=== PATIENT | male | born 1940 | race Caucasian/White ===

== ENCOUNTER 2017-01-20 21:35 | Emergency (ER) | payer MEDICARE, BC ==
--- NOTE | 2017-01-20 23:30 | ULT ---
LEFT UPPER EXTREMITY VENOUS DUPLEX SONOGRAM 01/20/17 HISTORY: Left arm pain and edema. FINDINGS: The left internal jugular vein and subclavian veins were evaluated along with the axillary, brachial, cephalic, and basilic veins. Good color and spectral doppler flow were present. IMPRESSION: No sonographic evidence of DVT within the left upper extremity. POS: DINESH
== END 2017-01-20 23:57 | disposition home or self-care (01) ==
LOC: ERS 21:35
DX: M79.89 Other specified soft tissue disorders (principal); G89.18 Other acute postprocedural pain

== ENCOUNTER 2017-02-16 16:29 | Inpatient (IN) | payer MEDICARE, BC ==
[2017-02-16] MEDS ORDERED: Ondansetron HCl/PF 4 MG/2 ML Vial IVP PRN (17:43)
[2017-02-16] MEDS ORDERED: HYDROcodone/Acetaminophen 5/325 mg Tablet PO PRN (17:43)
[2017-02-16] MEDS ORDERED: Guaifenesin DM 100-10/5 ML UDCUP PO PRN (17:43)
[2017-02-16] MEDS ORDERED: Ibuprofen 200 MG TAB PO PRN (17:49)
--- NOTE | 2017-02-16 20:00 | ULT ---
BILATERAL LOWER EXTREMITY VENOUS DOPPLER ULTRASOUND EVALUATION 02/16/17 HISTORY: Pulmonary embolus. Multiple longitudinal and transverse images of the right and left lower extremity venous systems are obtained using a multihertz linear array transducer. Real time, color flow, and spectral waveform dop pler analysis used to evaluate the right and left lower extremity venous systems. The left common femoral, superficial femoral, femoral profunda, popliteal, posterior tibial vein, pos t trifurcation veins, and left greater saphenous vein are all patent without evidence of acute or old clots seen. The right common femoral vein, superficial femoral vein, popliteal vein, and posterior tibial veins all contained noncompressible clot which fills the right lower extremity deep venous system. Some are as contain no flow. Minimal flow is seen through some areas. Findings compatible with acute right low er extremity deep venous thrombosis. Flow is seen in the right greater saphenous vein. IMPRESSION: Extensive right lower extremity deep venous thrombosis filling the right common femoral vein, superfi cial femoral vein, right popliteal vein, and distal. This is a large amount of clot. POS: JESICA
--- NOTE | 2017-02-16 21:27 | HP ---
DATE OF ADMISSION: 02/16/2017 ADMITTING PHYSICIAN: Dr. Roel Tran. PRIMARY CARE PHYSICIAN: Dr. Sara Ponce. CHIEF COMPLAINT: Right ear pain, dizziness, and left shoulder pain. HISTORY OF PRESENT ILLNESS: The patient is a 76-year-old gentleman who underwent a recent left shoul luca arthroplasty. The patient presented for evaluation in [place] for right ear pain, dizziness , shortness of breath. The patient and his report that for the last two weeks he has progressiv chasity become more short of breath and coughing up some light colored thick sputum 4-5 times a day. It has been worse over the last 24 hours. They also report that he has had some recent swelling and armida ma of the left arm. He was seen in the office of his PCP today secondary to hypoxia and dyspnea. He was sent to the emergency room for further evaluation. He denies chest pain, nausea, vomiting, diap horesis. REVIEW OF SYSTEMS: The following complete review of systems was negative, unless otherwise mentioned in the HPI or below: Constitutional: Weight loss or gain, sense of well-being, ability to conduct usual activities, exerc ise tolerance. Skin/Breast: Rash, itching, changes in hair growth or loss, nail changes, breast lumps, tenderness, swelling, nipple discharge. Eyes: Vision, double vision, tearing, blind spots, pain. ENT/Mouth: Headaches (location, time of onset, duration, precipitating factors), vertigo, lightheade dness, injury. Vision, double vision, tearing, blind spots, pain, nose bleeding, colds, obstruction, discharge, dental difficulties, gingival bleeding, dentures, neck stiffness, pain, tenderness, masses in thyroid or other areas. Cardiovascular: Precordial pain, substernal distress, palpitations, syncope, dyspnea on exertion, or thopnea, nocturnal paroxysmal dyspnea, edema, cyanosis, hypertension, heart murmurs, varicosities, ph lebitis, claudication. Respiratory: Pain, shortness of breath, wheezing, stridor, cough, hemoptysis, fever or night sweats. Gastrointestinal: Poor appetite, dysphagia, indigestion, abdominal pain, heartburn, eructation, naus ea, vomiting, hematemesis, jaundice, constipation, or diarrhea, abnormal stools (victoria-colored, tarry, bloody, greasy, foul smelling), flatulence, hemorrhoids, recent changes in bowel habits. Genitourinary: Urgency, frequency, dysuria, nocturia, hematuria, polyuria, oliguria, unusual (or kye nge in) color of urine, stones, hesitancy, change in size of stream, dribbling, acute retention or in continence, libido, potency. Musculoskeletal: Pain, swelling, redness or heat of muscles or joints, limitation, of motion, muscul ar weakness, atrophy, cramps. Neurologic/Psychiatric: Convulsions, paralyses, tremor, incoordination, paresthesias, difficulties w ith memory of speech, sensory or motor disturbances, or muscular coordination (ataxia, tremor), emoti onal problems, anxiety, depression, previous psychiatric care, unusual perceptions, hallucinations. Allergy/Immunologic: Skin rash, anemia, bleeding tendency, polydipsia, polyuria, intolerance to heat or cold. PAST MEDICAL HISTORY: Significant for degenerative joint disease, multiple hernias and iron deficien cy. PAST SURGICAL HISTORY: Positive for left shoulder replacement in 11/25/2016, left hip replacement in 04/2016 PSYCHIATRIC HISTORY: None. SOCIAL HISTORY: The patient denies alcohol, denies drugs, denies smoking. 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 HOME MEDICATIONS: Include Flomax 0.4 mg q. day, gabapentin 300 mg once a day, ibuprofen 200 mg q.6 h ours as needed. DRUG ALLERGIES: PENICILLINS, TETANUS VACCINES AND TOXOID. PHYSICAL EXAMINATION: VITAL SIGNS: Vital statistics, temperature 98.5, blood pressure 129/82, pulse 92, respirations 20, s atting 90% on 2 liters. GENERAL: He is in no acute distress, pleasant, cooperative, alert and oriented x4. HEAD: Normocephalic and atraumatic. EYES: PERRL. Extraocular muscles are intact. Sclerae are anicteric. NECK: Supple, full range of motion. Trachea is midline. CHEST: Breath sounds diminished in the right lower lobe, otherwise clear to auscultation. No wheezi ng, no rhonchi, no rales. CARDIOVASCULAR: Regular rate and rhythm, no murmurs, regurg or gallops. ABDOMEN: Nontender and nondistended. Positive bowel sounds throughout. EXTREMITIES: No clubbing, cyanosis or edema. NEUROLOGIC: No focal deficits. Full range of motion of all extremities. Cranial nerves II-XII are grossly intact. LABORATORY DATA AND IMAGES: EKG shows no ST segment abnormalities, frequent PVCs are present. No T- wave inversions. Chest x-ray shows a pleural effusion 10% to 50% on the right. No acute infiltrates , some right basal scarring and effusion versus atelectasis. Chest CT shows bilateral pulmonary embo li. CBC shows a white count of 8.6, hemoglobin 14.2, hematocrit 44.5, platelets 281,000. PT 15.3, I NR 1.2. D-dimer 10.18. CMP shows sodium of 134, potassium 4.3, chloride 97, CO2 of 25, BUN 12, crea tinine 0.83, glucose 386. Hemoglobin A1c of 5.9%. Lactic acid 1.9, calcium 9.2, AST 16, ALT 23, mag nesium 1.8, calcium 9.2. CK-MB of 1.4, creatine kinase of 63, troponin less than 0.01. BNP of less than 10. Albumin 3.8. LDL cholesterol of 96, HDL 60, total cholesterol 173, amylase 50, lipase 35. TSH of 2.07 with a free T4 of 0.8. Urinalysis yellow, clear, negative for ketones, negative for nit rites, negative for leukocytes. ASSESSMENT: 1. Bilateral pulmonary emboli. 2. Abdominal pain. 3. Hyperglycemia. PLAN: The patient will be admitted to the telemetry unit. We will use a Lovenox bridge as we attemp t to coumadinize him. We will start Coumadin at 5 mg at bedtime, check serial PT/INR until he is the rapeutic with an INR of greater than 2.0. Hyperglycemia, the patient has hemoglobin A1c of 5.9% with a markedly elevated serum glucose. We will repeat the labs in the morning and consider starting ora l hypoglycemics.
[2017-02-16] MEDS ORDERED: Enoxaparin Sodium 80 MG/0.8 ML SYRINGE SC SCH (21:30)
[2017-02-16] MEDS ORDERED: Warfarin Sodium 5 MG TAB PO SCH (21:30)
[2017-02-16] MEDS: Melatonin 3 MG TAB PO SCH (22:12)
[2017-02-16] MEDS: Acetaminophen 325 MG TAB PO PRN (22:14)
[2017-02-17 04:43] LABS: #Basophils 0.1 thou/uL (0.0-0.2); #Eosinphils 0.2 thou/uL (0.0-0.7); #Lymphocytes 2.2 thou/uL (1.20-3.40); #Monocytes 0.8 thou/uL (0.11-0.59); %Basophils 0.9 % (0.0-1.0); %Eosinophils 2.6 % (0.0-10.0); %Lymphocytes 30.2 % (21.0-51.0); %Monocytes 10.8 % (0.0-10.0); Hematocrit 43.3 % (42.0-52.0); Mean Platelet Volume 7.8 fL (7.4-10.4); Red Blood Cell (RBC) Count 4.88 mill/uL (4.70-6.10); White Blood Cell (WBC) Count 7.3 thou/uL (4.8-10.8)
[2017-02-17 06:16] LABS: Anion Gap 15 mmol/L (10-20); BUN (Urea Nitrogen) 12 mg/dL (8.4-25.7); Calc. Creatinine Clearance 80 mL/min (70-130); Calcium 9.9 mg/dL (7.8-10.44); Carbon Dioxide 23 mmol/L (23-31); Chloride 97 mmol/L (98-107); Estimated GFR-MDRD Greater than 90
[2017-02-17] MEDS ORDERED: Eucerin (Mineral Oil/Petrolatum,White) 30 gm Jar TOP PRN (07:55)
[2017-02-17] MEDS ORDERED: Loperamide HCl 2 MG CAP PO PRN (07:55)
[2017-02-17] MEDS ORDERED: Temazepam 15 MG CAP PO PRN (07:55)
[2017-02-17] MEDS ORDERED: Mag-Al 1200 mg/1200 mg/30 ML UDCUP PO PRN (07:55)
[2017-02-17] MEDS ORDERED: Loratadine 10 MG TAB PO PRN (07:55)
[2017-02-17] MEDS ORDERED: Sodium Chloride 0.65% Nasal 44 ML BOT EA NARE PRN (07:55)
[2017-02-17] MEDS ORDERED: Senokot 8.6 MG TAB PO PRN (07:55)
[2017-02-17] MEDS ORDERED: Ondansetron ODT 4 MG TAB PO PRN (07:55)
[2017-02-17] MEDS ORDERED: Artificial Tears 18 DROP/0.9 ML EA EYE PRN (07:55)
[2017-02-17] MEDS ORDERED: Diabetic Tussin 200 MG/10 ML UDCUP PO PRN (07:55)
[2017-02-17] MEDS ORDERED: hydrALAZINE 20 MG/ML VIAL SLOW IVP PRN (07:55)
[2017-02-17] MEDS ORDERED: Chloraseptic Spray 180 ml Bottle PO PRN (07:55)
[2017-02-17] MEDS ORDERED: Dextrose 50% Abboject 50 ML SYRINGE SLOW IVP PRN (07:57)
[2017-02-17] MEDS ORDERED: Dextrose 5% in Water 1,000 ML IV PRN (07:57)
[2017-02-17 08:39] LABS: Hemoglobin A1c 9.8 % (4.0-6.0)
[2017-02-17] MEDS: Milk Of Magnesia 30 ML UDCUP PO PRN (08:43)
[2017-02-17] MEDS: Ferrous Gluconate 324 MG TAB PO SCH ×2 (08:43→17:15)
[2017-02-17] MEDS: Enoxaparin Sodium 80 MG/0.8 ML SYRINGE SC SCH ×2 (08:43→21:02)
[2017-02-17] MEDS: Famotidine 20 MG TAB PO SCH ×2 (08:43→20:54)
[2017-02-17 08:50] LABS: Prothrombin Time 15.9 SEC (12.0-14.7)
[2017-02-17 08:58] LABS: ALT (SGPT) 22 U/L (8-55); AST (SGOT) 33 U/L (5-34); Alkaline Phosphatase 87 U/L (40-150); Bilirubin, Direct 0.1 mg/dL (0.1-0.3); Bilirubin, Total 0.4 mg/dL (0.2-1.2); Protein, Total 7.8 g/dL (5.8-8.1)
--- NOTE | 2017-02-17 10:13 | PDOC.PN ---
- Subjective Encounter Start Date: 02/17/17 Encounter Start Time: 07:50 -: old records requested/rev pt has dyspnea, no leg pain, no chest pain, has 4 lbs weight loss - Objective MAR Reviewed: Yes Vital Signs & Weight: Vital Signs (12 hours) Temp Pulse Resp BP Pulse Ox 02/17/17 07:30 97.4 F L 84 18 119/74 100 02/17/17 04:40 100 02/17/17 04:00 97.3 F L 56 L 20 135/82 100 02/17/17 00:50 99 02/17/17 00:00 97.4 F L 89 20 116/77 99 02/16/17 22:13 98 Weight Weight 165 lb I&O: 02/16/17 02/17/17 02/18/17 06:59 06:59 06:59 Intake Total 360 Output Total 625 Balance -265 Result Diagrams: 02/17/17 03:54 02/17/17 03:54 Radiology Reviewed by me: Yes (CTA, US leg) EKG Reviewed by me: Yes (NSR) Phys Exam - Physical Examination Constitutional: NAD HEENT: PERRLA, moist MMs, sclera anicteric Neck: no JVD, supple Respiratory: no wheezing, no rales, no rhonchi reduced air entry at base Cardiovascular: RRR, no significant murmur, no rub Gastrointestinal: soft, non-tender, no distention, positive bowel sounds Musculoskeletal: no edema, pulses present Neurological: non-focal, normal sensation, moves all 4 limbs Psychiatric: normal affect, A&O x 3 Skin: no rash, normal turgor Dx/Plan (1) New onset type 2 diabetes mellitus Code(s): E11.9 - TYPE 2 DIABETES MELLITUS WITHOUT COMPLICATIONS Status: Acute (2) Bilateral pulmonary embolism Code(s): I26.99 - OTHER PULMONARY EMBOLISM WITHOUT ACUTE COR PULMONALE Status : Acute (3) DVT of lower extremity (deep venous thrombosis) Code(s): I82.409 - ACUTE EMBOLISM AND THOMBOS UNSP DEEP VN UNSP LOWER EXTREMITY Status: Acute (4) Hyperglycemia Code(s): R73.9 - HYPERGLYCEMIA, UNSPECIFIED Status: Acute (5) Degenerative joint disease of left shoulder Code(s): M19.012 - PRIMARY OSTEOARTHRITIS, LEFT SHOULDER Status: Chronic (6) Osteoarthritis Code(s): M19.90 - UNSPECIFIED OSTEOARTHRITIS, UNSPECIFIED SITE Status: Chronic - Plan cont current plan of care * continue to monitor blood sugar * consult dietitian * add metformin 500 mg po bid * add glyburide 2.5 mg po daily * continue lovenox and warfarin until INR therapeutic * risk benefit of anticoagulation and different option discussed * medication reviewed as below * symptomatic treatment. * outpt ENT follow up for wax removal from right ear * will need age appropriate cancer screening after discharge * will monitor labs daily Review of Systems - Review of Systems Constitutional: negative: Fever, Chills, Sweats, Weakness, Malaise, Other Eyes: negative: Pain, Vision Change, Conjunctivae Inflammation, Eyelid Inflammation, Redness, Other ENT: negative: Ear Pain, Ear Discharge, Nose Pain, Nose Discharge, Nose Congestion, Mouth Pain, Mouth Swelling, Throat Pain, Throat Swelling, Other Respiratory: SOB with Excertion. negative: Cough, Dry, Shortness of Breath, Hemoptysis, Pleuritic Pain, Sputum, Wheezing Cardiovascular: negative: Chest Pain, Palpitations, Orthopnea, Paroxysmal Noc. Dyspnea, Edema, Light Headedness, Other Gastrointestinal: negative: Nausea, Vomiting, Abdominal Pain, Diarrhea, Constipation, Melena, Hematochezia, Other Genitourinary: negative: Dysuria, Frequency, Incontinence, Hematuria, Retention , Other Musculoskeletal: negative: Neck Pain, Shoulder Pain, Arm Pain, Back Pain, Hand Pain, Leg Pain, Foot Pain, Other Skin: negative: Rash, Lesions, Michael, Bruising, Other - Medications/Allergies Allergies/Adverse Reactions: Allergies Allergy/AdvReac Type Severity Reaction Status Date / Time Penicillins Allergy Verified 02/16/17 22:17 Tetanus Vaccines and Toxoid Allergy Verified 02/16/17 22:17 [Tetanus Vaccines & Toxoid] Medications: Current Medications Acetaminophen (Tylenol) 650 mg PO Q4H PRN PRN Reason: Headache/Fever or Pain Last Admin: 02/16/17 22:14 Dose: 650 mg Hydrocodone Bitart/Acetaminophen ([place] 5/325) 1 tab PO Q4H PRN PRN Reason: Moderate Pain (4-6) Al Hydroxide/Mg Hydroxide (Maalox) 15 ml PO Q4H PRN PRN Reason: Heartburn or Indigestion Artificial Tears (Tears Naturale) 0 drop EA EYE PRN PRN PRN Reason: Dry Eyes Dextrose/Water (Dextrose 50%) 25 gm SLOW IVP PRN PRN PRN Reason: Hypoglycemia Enoxaparin Sodium (Lovenox) 75 mg SC 0900,2100 [facility] Last Admin: 02/17/17 08:43 Dose: 75 mg Famotidine (Pepcid) 20 mg PO BID [facility] Last Admin: 02/17/17 08:43 Dose: 20 mg Ferrous Gluconate (Fergon) 324 mg PO BID-[facility] Last Admin: 02/17/17 08:43 Dose: 324 mg Glucagon (Glucagon) 1 mg IM PRN PRN PRN Reason: Hypoglycemia Glyburide (Micronase) 2.5 mg PO QAM-[facility] Guaifenesin (Robitussin Sf) 200 mg PO Q4H PRN PRN Reason: Cough Guaifenesin/Dextromethorphan (Robitussin Dm) 15 ml PO Q4H PRN PRN Reason: Cough Hydralazine HCl (Apresoline) 10 mg SLOW IVP Q4H PRN PRN Reason: Systolic BP > 180 Dextrose/Water (D5w) 1,000 mls @ 0 mls/hr IV .Q0M PRN; As Directed PRN Reason: Hypoglycemia Insulin Human Lispro (Humalog) 0 units SC .MODERATE SLIDING SC PRN PRN Reason: Moderate Correctional Scale Insulin Human Lispro (Humalog) 0 units SC .BEDTIME SLIDING SC PRN PRN Reason: Bedtime Correctional Scale Loperamide HCl (Imodium) 2 mg PO PRN PRN PRN Reason: Diarrhea/Loose Stools Loratadine (Claritin) 10 mg PO DAILYPRN PRN PRN Reason: Sinus Symptoms Magnesium Hydroxide (Milk Of Magnesium) 30 ml PO DAILYPRN PRN PRN Reason: Constipation Last Admin: 02/17/17 08:43 Dose: 30 ml Melatonin (Melatonin) [address] [facility] Last Admin: 02/16/17 22:12 Dose: 6 mg Metformin HCl (Glucophage) 500 mg PO BID-[facility] Mineral Oil/White Petrolatum (Eucerin Cream) 0 gm TOP BIDPRN PRN PRN Reason: Dry Skin Ondansetron HCl (Zofran) 4 mg IVP Q6H PRN PRN Reason: Nausea/Vomiting Ondansetron HCl (Zofran Odt) 4 mg PO Q6H PRN PRN Reason: Nausea/Vomiting Phenol (Chloraseptic [place] 180 Ml Bot) 0 ml PO PRN PRN PRN Reason: Sore Throat Senna (Senokot) 2 tab PO HSPRN PRN PRN Reason: Constipation Sodium Chloride (Flush - Normal Saline) 10 ml IVF Q12HR [facility] Last Admin: 02/17/17 08:44 Dose: 10 ml Sodium Chloride (Flush - Normal Saline) 10 ml IVF PRN PRN PRN Reason: Saline Flush Sodium Chloride ([place] Nasal [place] 0.65%) 0 ml EA NARE QIDPRN PRN PRN Reason: Nasal Congestion Temazepam (Restoril) 15 mg PO HSPRN PRN PRN Reason: Insomnia Warfarin Sodium (Coumadin) 5 mg PO 1700 [facility]
[2017-02-17 10:29] LABS: Bilirubin Negative (Negative); Blood, Urine Negative (Negative); Glucose, Urine (Dipstick) 500 mg/dL (Negative); Ketone, Urine Negative (Negative); Nitrite Negative (Negative); Protein, Urine (Dipstick) 30 mg/dL (Neg-Trace); Urobilinogen 0.2 mg/dL (0.2-1.0)
[2017-02-17 10:32] LABS: Bacteria/HPF None Seen HPF (None Seen); Hyaline Casts/LPF 0-3 HYALINE CAST LPF (0-3 Hyaline); RBC/HPF 0-3 HPF (0-3); Squamous Epithelial 0-3 HPF (0-3); WBC/HPF 0-3 HPF (0-3)
[2017-02-17] MEDS: HumaLOG 300 UNITS/3 ML VIAL SC PRN ×3 (12:35→21:09)
[2017-02-17] MEDS: Warfarin Sodium 5 MG TAB PO SCH (17:16)
[2017-02-17] MEDS: metFORMIN 500 MG TAB PO SCH (17:17)
[2017-02-17] MEDS: Melatonin 3 MG TAB PO SCH (20:59)
[2017-02-18 04:58] LABS: Prothrombin Time 16.3 SEC (12.0-14.7)
[2017-02-18 05:04] LABS: Calc. Creatinine Clearance 86 mL/min (70-130); Estimated GFR-MDRD Greater than 90
[2017-02-18] MEDS ORDERED: glyBURIDE 2.5 MG TAB PO SCH ×2 (08:00)
[2017-02-18] MEDS: metFORMIN 500 MG TAB PO SCH ×2 (09:03→16:20)
[2017-02-18] MEDS: Enoxaparin Sodium 80 MG/0.8 ML SYRINGE SC SCH ×2 (09:03→21:06)
--- NOTE | 2017-02-18 10:06 | PDOC.PN ---
- Subjective Encounter Start Date: 02/18/17 Encounter Start Time: 07:50 Patient seen and examined. No new complaints. No overnight events, pt denies any kristopher GI bleed, he reports some constipation and bloating after food no chest pain or dyspnea - Objective MAR Reviewed: Yes Vital Signs & Weight: Vital Signs (12 hours) Temp Pulse Resp BP Pulse Ox 02/18/17 07:29 98.5 F 83 18 95 02/18/17 06:50 98.5 F 83 18 125/77 95 02/18/17 04:56 99.1 F 86 25 H 90 L Weight Admit Weight 166 lb 11.2 oz Weight 165 lb I&O: 02/17/17 02/18/17 02/19/17 06:59 06:59 06:59 Intake Total 360 1440 Output Total 625 400 Balance -265 1040 Result Diagrams: 02/18/17 04:08 02/18/17 04:08 Additional Labs: Accuchecks 02/18/17 02/17/17 02/17/17 05:55 20:15 17:12 POC Glucose 213 H 252 H 229 H 02/17/17 11:38 POC Glucose 360 H EKG Reviewed by me: Yes (NSR) Phys Exam - Physical Examination Constitutional: NAD HEENT: PERRLA, moist MMs, sclera anicteric Neck: no JVD, supple Respiratory: no wheezing, no rales, no rhonchi Cardiovascular: RRR, no significant murmur, no rub Gastrointestinal: soft, non-tender, no distention, positive bowel sounds Musculoskeletal: no edema, pulses present Neurological: non-focal, normal sensation, moves all 4 limbs Lymphatic: no nodes Psychiatric: normal affect, A&O x 3 Skin: no rash, normal turgor Dx/Plan (1) Bilateral pulmonary embolism Code(s): I26.99 - OTHER PULMONARY EMBOLISM WITHOUT ACUTE COR PULMONALE Status : Acute (2) New onset type 2 diabetes mellitus Code(s): E11.9 - TYPE 2 DIABETES MELLITUS WITHOUT COMPLICATIONS Status: Acute (3) DVT of lower extremity (deep venous thrombosis) Code(s): I82.409 - ACUTE EMBOLISM AND THOMBOS UNSP DEEP VN UNSP LOWER EXTREMITY Status: Acute (4) Hyperglycemia Code(s): R73.9 - HYPERGLYCEMIA, UNSPECIFIED Status: Acute (5) Degenerative joint disease of left shoulder Code(s): M19.012 - PRIMARY OSTEOARTHRITIS, LEFT SHOULDER Status: Chronic (6) Osteoarthritis Code(s): M19.90 - UNSPECIFIED OSTEOARTHRITIS, UNSPECIFIED SITE Status: Chronic - Plan cont current plan of care * increase glyburide 5 mg po daily * hold metformin for 48 hours * today CT abdomen and pelvis with contrast * continue lovenox and warfarin until INR therapeutic * medication reviewed as below * symptomatic treatment. * will monitor labs Review of Systems - Review of Systems ENT: negative: Ear Pain, Ear Discharge, Nose Pain, Nose Discharge, Nose Congestion, Mouth Pain, Mouth Swelling, Throat Pain, Throat Swelling, Other Respiratory: negative: Cough, Dry, Shortness of Breath, Hemoptysis, SOB with Excertion, Pleuritic Pain, Sputum, Wheezing Cardiovascular: negative: Chest Pain, Palpitations, Orthopnea, Paroxysmal Noc. Dyspnea, Edema, Light Headedness, Other Gastrointestinal: Constipation. negative: Nausea, Vomiting, Abdominal Pain, Diarrhea, Melena, Hematochezia, Other Genitourinary: negative: Dysuria, Frequency, Incontinence, Hematuria, Retention , Other Musculoskeletal: negative: Neck Pain, Shoulder Pain, Arm Pain, Back Pain, Hand Pain, Leg Pain, Foot Pain, Other Skin: negative: Rash, Lesions, Michael, Bruising, Other - Medications/Allergies Allergies/Adverse Reactions: Allergies Allergy/AdvReac Type Severity Reaction Status Date / Time Penicillins Allergy Verified 02/16/17 22:17 Tetanus Vaccines and Toxoid Allergy Verified 02/16/17 22:17 [Tetanus Vaccines & Toxoid] Medications: Current Medications Acetaminophen (Tylenol) 650 mg PO Q4H PRN PRN Reason: Headache/Fever or Pain Last Admin: 02/16/17 22:14 Dose: 650 mg Hydrocodone Bitart/Acetaminophen ([place] 5/325) 1 tab PO Q4H PRN PRN Reason: Moderate Pain (4-6) Al Hydroxide/Mg Hydroxide (Maalox) 15 ml PO Q4H PRN PRN Reason: Heartburn or Indigestion Artificial Tears (Tears Naturale) 0 drop EA EYE PRN PRN PRN Reason: Dry Eyes Dextrose/Water (Dextrose 50%) 25 gm SLOW IVP PRN PRN PRN Reason: Hypoglycemia Enoxaparin Sodium (Lovenox) 75 mg SC 0900,2100 [facility] Last Admin: 02/18/17 09:03 Dose: 75 mg Famotidine (Pepcid) 20 mg PO BID [facility] Last Admin: 02/17/17 20:54 Dose: 20 mg Ferrous Gluconate (Fergon) 324 mg PO BID-[facility] Last Admin: 02/17/17 17:15 Dose: 324 mg Glucagon (Glucagon) 1 mg IM PRN PRN PRN Reason: Hypoglycemia Glyburide ([place]) 5 mg PO QAM-[facility] Guaifenesin (Robitussin Sf) 200 mg PO Q4H PRN PRN Reason: Cough Guaifenesin/Dextromethorphan (Robitussin Dm) 15 ml PO Q4H PRN PRN Reason: Cough Hydralazine HCl (Apresoline) 10 mg SLOW IVP Q4H PRN PRN Reason: Systolic BP > 180 Dextrose/Water (D5w) 1,000 mls @ 0 mls/hr IV .Q0M PRN; As Directed PRN Reason: Hypoglycemia Insulin Human Lispro (Humalog) 0 units SC .MODERATE SLIDING SC PRN PRN Reason: Moderate Correctional Scale Last Admin: 02/17/17 17:32 Dose: 4 unit Insulin Human Lispro (Humalog) 0 units SC .BEDTIME SLIDING SC PRN PRN Reason: Bedtime Correctional Scale Last Admin: 02/17/17 21:09 Dose: 3 unit Loperamide HCl (Imodium) 2 mg PO PRN PRN PRN Reason: Diarrhea/Loose Stools Loratadine (Claritin) 10 mg PO DAILYPRN PRN PRN Reason: Sinus Symptoms Magnesium Hydroxide (Milk Of Magnesium) 30 ml PO DAILYPRN PRN PRN Reason: Constipation Last Admin: 02/17/17 08:43 Dose: 30 ml Melatonin (Melatonin) 6 mg PO [facility] Last Admin: 02/17/17 20:59 Dose: 6 mg Metformin HCl (Glucophage) 500 mg PO BID-[facility] Last Admin: 02/18/17 09:03 Dose: Not Given Mineral Oil/White Petrolatum (Eucerin Cream) 0 gm TOP BIDPRN PRN PRN Reason: Dry Skin Ondansetron HCl (Zofran) 4 mg IVP Q6H PRN PRN Reason: Nausea/Vomiting Ondansetron HCl (Zofran Odt) 4 mg PO Q6H PRN PRN Reason: Nausea/Vomiting Phenol (Chloraseptic [place] 180 Ml Bot) 0 ml PO PRN PRN PRN Reason: Sore Throat Senna (Senokot) 2 tab PO HSPRN PRN PRN Reason: Constipation Sodium Chloride (Flush - Normal Saline) 10 ml IVF Q12HR [facility] Last Admin: 02/18/17 09:07 Dose: 10 ml Sodium Chloride (Flush - Normal Saline) 10 ml IVF PRN PRN PRN Reason: Saline Flush Sodium Chloride ([place] Nasal [place] 0.65%) 0 ml EA NARE QIDPRN PRN PRN Reason: Nasal Congestion Tamsulosin HCl (Flomax) 0.4 mg PO DAILY [facility] Temazepam (Restoril) 15 mg PO HSPRN PRN PRN Reason: Insomnia Warfarin Sodium (Coumadin) 5 mg PO 1700 [facility] Last Admin: 02/17/17 17:16 Dose: 5 mg
[2017-02-18] MEDS: glyBURIDE 5 MG TAB PO SCH (10:42)
[2017-02-18] MEDS: Ferrous Gluconate 324 MG TAB PO SCH ×2 (10:42→17:34)
[2017-02-18] MEDS: Milk Of Magnesia 30 ML UDCUP PO PRN (10:42)
[2017-02-18] MEDS: Famotidine 20 MG TAB PO SCH ×2 (10:43→21:05)
[2017-02-18] MEDS: Tamsulosin HCl 0.4 MG CAP PO SCH (10:43)
--- NOTE | 2017-02-18 11:17 | CT ---
CT SCAN ABDOMEN AND PELVIS WITH AND WITHOUT CONTRAST: Date: 02/18/17 Multiple axial tomograms are obtained through the abdomen and pelvis pre and post IV contrast. Postco ntrast images were obtained in a portal venous and a delayed venous phase following urogram protocol. HISTORY: Hematuria protocol is requested. Urinary incontinence. FINDINGS: Imaged through the lung bases reveal a small right pleural effusion and mild right basilar atelectasi s. The liver shows diffuse hypodensity consistent with hepatic steatosis. Liver, spleen, and pancreas otherwise unremarkable. Adrenal glands appear normal. Kidneys show equal function. There is a 1.0 cm cyst inferior left kidney. There is a small exophytic low density lesion measuring approximately 1.0 cm posterolateral right renal cortex, probably represe nting a small exophytic cyst. The precontrast densities are higher than expected for a simple cyst ma dennise this a complex lesion. Small bowel loops appear normal. Diverticulosis of the sigmoid colon and left colon. No evidence of d iverticulitis. Images through the pelvis are degraded due to spray artifact from left hip prosthesis. The bladder is poorly distended and not well evaluated. Prostate shows mild enlargement with prostatic measurements recorded at 3.7 cm AP dimension x 5.1 cm width. Aorta is normal caliber. Nonspecific retroperitoneal lymph nodes are subcentimeter. No adenopathy. IMPRESSION: 1. Tiny right pleural effusion and mild right basilar atelectasis. 2. Hepatic steatosis. 3. An indeterminate exophytic low density lesion from the posterolateral right renal cortex measurin g 1.0 cm. This probably represents a complex cyst, but precontrast densities are recorded at 27 Houns field units. Follow-up noncontrast CT abdomen in 6 months is recommended to confirm stability. 4. Small, 1.0 cm, cystic lesion in the inferior left renal cortex. This lesion does have cystic dens ities on precontrast. 5. Sigmoid diverticulosis. 6. Bladder is not well distended and not adequately evaluated. Prostate shows mild hypertrophy witho ut significant mass effect on the bladder flow. POS: [facility]
[2017-02-18] MEDS: HumaLOG 300 UNITS/3 ML VIAL SC PRN ×3 (11:43→22:07)
[2017-02-18] MEDS ORDERED: Morphine 4 MG/ML VIAL SLOW IVP PRN (15:59)
[2017-02-18] MEDS ORDERED: HYDROcodone/Acetaminophen 10/325 mg Tablet PO PRN (15:59)
[2017-02-18] MEDS: Acetaminophen 325 MG TAB PO PRN (17:33)
[2017-02-18] MEDS: Warfarin Sodium 5 MG TAB PO SCH (17:33)
[2017-02-18] MEDS: Melatonin 3 MG TAB PO SCH (21:06)
[2017-02-19 06:33] LABS: Prothrombin Time 17.4 SEC (12.0-14.7)
[2017-02-19] MEDS: HumaLOG 300 UNITS/3 ML VIAL SC PRN ×4 (08:22→20:51)
[2017-02-19] MEDS: Enoxaparin Sodium 80 MG/0.8 ML SYRINGE SC SCH ×2 (08:24→20:47)
[2017-02-19] MEDS: glyBURIDE 5 MG TAB PO SCH (08:25)
[2017-02-19] MEDS: Famotidine 20 MG TAB PO SCH ×2 (08:25→20:46)
[2017-02-19] MEDS: Tamsulosin HCl 0.4 MG CAP PO SCH (08:26)
[2017-02-19] MEDS: Ferrous Gluconate 324 MG TAB PO SCH ×2 (08:26→18:05)
[2017-02-19] MEDS: metFORMIN 500 MG TAB PO SCH ×2 (08:26→18:02)
--- NOTE | 2017-02-19 10:58 | PDOC.PN ---
- Subjective Encounter Start Date: 02/19/17 Encounter Start Time: 07:50 pt c/o left hand and wrist pain, has chronic shoulder pain, no chest pain or dyspnea - Objective MAR Reviewed: Yes Vital Signs & Weight: Vital Signs (12 hours) Temp Pulse Resp BP BP Pulse Ox 02/19/17 07:27 97.9 F 76 16 88 L 02/19/17 07:15 76 16 137/69 02/19/17 03:17 97.7 F 87 12 133/74 90 L Weight Admit Weight 166 lb 11.2 oz Weight 165 lb 11.2 oz I&O: 02/18/17 02/19/17 02/20/17 06:59 06:59 06:59 Intake Total 1440 360 Output Total 400 725 Balance 1040 -365 Result Diagrams: 02/18/17 04:08 02/18/17 04:08 Additional Labs: Accuchecks 02/19/17 02/18/17 02/18/17 03:32 21:15 17:34 POC Glucose 217 H 253 H 231 H 02/18/17 11:08 POC Glucose 226 H Radiology Reviewed by me: Yes (CT abdomen) EKG Reviewed by me: Yes (nsr) Phys Exam - Physical Examination Constitutional: NAD HEENT: PERRLA, moist MMs, sclera anicteric Neck: no JVD, supple Respiratory: no wheezing, no rales, no rhonchi Cardiovascular: RRR, no significant murmur, no rub Gastrointestinal: soft, non-tender, no distention, positive bowel sounds Musculoskeletal: no edema, pulses present Neurological: non-focal, normal sensation, moves all 4 limbs Lymphatic: no nodes Psychiatric: normal affect, A&O x 3 Skin: no rash, normal turgor Dx/Plan (1) Bilateral pulmonary embolism Code(s): I26.99 - OTHER PULMONARY EMBOLISM WITHOUT ACUTE COR PULMONALE Status : Acute (2) New onset type 2 diabetes mellitus Code(s): E11.9 - TYPE 2 DIABETES MELLITUS WITHOUT COMPLICATIONS Status: Acute (3) DVT of lower extremity (deep venous thrombosis) Code(s): I82.409 - ACUTE EMBOLISM AND THOMBOS UNSP DEEP VN UNSP LOWER EXTREMITY Status: Acute (4) Hyperglycemia Code(s): R73.9 - HYPERGLYCEMIA, UNSPECIFIED Status: Acute (5) Degenerative joint disease of left shoulder Code(s): M19.012 - PRIMARY OSTEOARTHRITIS, LEFT SHOULDER Status: Chronic (6) Osteoarthritis Code(s): M19.90 - UNSPECIFIED OSTEOARTHRITIS, UNSPECIFIED SITE Status: Chronic - Plan cont current plan of care * will do xray left hand and wrist per pt request * seems like he has chronic pain since his left shoulder surgery * continue lovenox and warfarin until INR is therapeutic * medication reviewed as below * symptomatic treatment * pain control. Review of Systems - Review of Systems Constitutional: negative: Fever, Chills, Sweats, Weakness, Malaise, Other ENT: negative: Ear Pain, Ear Discharge, Nose Pain, Nose Discharge, Nose Congestion, Mouth Pain, Mouth Swelling, Throat Pain, Throat Swelling, Other Respiratory: negative: Cough, Dry, Shortness of Breath, Hemoptysis, SOB with Excertion, Pleuritic Pain, Sputum, Wheezing Cardiovascular: negative: Chest Pain, Palpitations, Orthopnea, Paroxysmal Noc. Dyspnea, Edema, Light Headedness, Other Gastrointestinal: negative: Nausea, Vomiting, Abdominal Pain, Diarrhea, Constipation, Melena, Hematochezia, Other Genitourinary: negative: Dysuria, Frequency, Incontinence, Hematuria, Retention , Other Musculoskeletal: Shoulder Pain, Hand Pain. negative: Neck Pain, Arm Pain, Back Pain, Leg Pain, Foot Pain, Other Skin: negative: Rash, Lesions, Michael, Bruising, Other - Medications/Allergies Allergies/Adverse Reactions: Allergies Allergy/AdvReac Type Severity Reaction Status Date / Time Penicillins Allergy Verified 02/16/17 22:17 Tetanus Vaccines and Toxoid Allergy Verified 02/16/17 22:17 [Tetanus Vaccines & Toxoid] Medications: Current Medications Acetaminophen (Tylenol) 650 mg PO Q4H PRN PRN Reason: Headache/Fever or Pain Last Admin: 02/18/17 17:33 Dose: 650 mg Hydrocodone Bitart/Acetaminophen ([place] 5/325) 1 tab PO Q4H PRN PRN Reason: Moderate Pain (4-6) Hydrocodone Bitart/Acetaminophen ([place] 10/325) 1 tab PO Q4H PRN PRN Reason: Pain 7-10 Al Hydroxide/Mg Hydroxide (Maalox) 15 ml PO Q4H PRN PRN Reason: Heartburn or Indigestion Artificial Tears (Tears Naturale) 0 drop EA EYE PRN PRN PRN Reason: Dry Eyes Dextrose/Water (Dextrose 50%) 25 gm SLOW IVP PRN PRN PRN Reason: Hypoglycemia Enoxaparin Sodium (Lovenox) 75 mg SC 0900,2100 [facility] Last Admin: 02/19/17 08:24 Dose: 75 mg Famotidine (Pepcid) 20 mg PO BID [facility] Last Admin: 02/19/17 08:25 Dose: 20 mg Ferrous Gluconate (Fergon) 324 mg PO BID-[facility] Last Admin: 02/19/17 08:26 Dose: 324 mg Glucagon (Glucagon) 1 mg IM PRN PRN PRN Reason: Hypoglycemia Glyburide (Diabeta) 5 mg PO QAM-[facility] Last Admin: 02/19/17 08:25 Dose: 5 mg Guaifenesin (Robitussin Sf) 200 mg PO Q4H PRN PRN Reason: Cough Guaifenesin/Dextromethorphan (Robitussin Dm) 15 ml PO Q4H PRN PRN Reason: Cough Hydralazine HCl (Apresoline) 10 mg SLOW IVP Q4H PRN PRN Reason: Systolic BP > 180 Dextrose/Water (D5w) 1,000 mls @ 0 mls/hr IV .Q0M PRN; As Directed PRN Reason: Hypoglycemia Insulin Human Lispro (Humalog) 0 units SC .MODERATE SLIDING SC PRN PRN Reason: Moderate Correctional Scale Last Admin: 02/19/17 08:22 Dose: 4 unit Insulin Human Lispro (Humalog) 0 units SC .BEDTIME SLIDING SC PRN PRN Reason: Bedtime Correctional Scale Last Admin: 02/18/17 22:07 Dose: 3 unit Loperamide HCl (Imodium) 2 mg PO PRN PRN PRN Reason: Diarrhea/Loose Stools Loratadine (Claritin) 10 mg PO DAILYPRN PRN PRN Reason: Sinus Symptoms Magnesium Hydroxide (Milk Of Magnesium) 30 ml PO DAILYPRN PRN PRN Reason: Constipation Last Admin: 02/18/17 10:42 Dose: 30 ml Melatonin (Melatonin) 6 mg PO [facility] Last Admin: 02/18/17 21:06 Dose: 6 mg Metformin HCl (Glucophage) 500 mg PO BID-[facility] Last Admin: 02/19/17 08:26 Dose: Not Given Mineral Oil/White Petrolatum (Eucerin Cream) 0 gm TOP BIDPRN PRN PRN Reason: Dry Skin Morphine Sulfate (Morphine) 2 mg SLOW IVP Q4H PRN PRN Reason: Pain IF UNABLE TO TAKE PO Ondansetron HCl (Zofran) 4 mg IVP Q6H PRN PRN Reason: Nausea/Vomiting Ondansetron HCl (Zofran Odt) 4 mg PO Q6H PRN PRN Reason: Nausea/Vomiting Phenol (Chloraseptic [place] 180 Ml Bot) 0 ml PO PRN PRN PRN Reason: Sore Throat Senna (Senokot) 2 tab PO HSPRN PRN PRN Reason: Constipation Sodium Chloride (Flush - Normal Saline) 10 ml IVF Q12HR [facility] Last Admin: 02/19/17 08:23 Dose: 10 ml Sodium Chloride (Flush - Normal Saline) 10 ml IVF PRN PRN PRN Reason: Saline Flush Sodium Chloride ([place] Nasal [place] 0.65%) 0 ml EA NARE QIDPRN PRN PRN Reason: Nasal Congestion Tamsulosin HCl (Flomax) 0.4 mg PO DAILY [facility] Last Admin: 02/19/17 08:26 Dose: 0.4 mg Temazepam (Restoril) 15 mg PO HSPRN PRN PRN Reason: Insomnia Warfarin Sodium (Coumadin) 5 mg PO 1700 [facility] Last Admin: 02/18/17 17:33 Dose: 5 mg
--- NOTE | 2017-02-19 13:46 | RAD ---
LEFT WRIST 3 VIEWS: HISTORY: Left wrist pain. FINDINGS: Moderate degenerative changes of the 1st carpometacarpal joint. There is joint space narrowing and h ypertrophic changes at this joint. Carpals appear intact. No acute fracture identified. IMPRESSION: No acute fracture. Moderate degenerative changes at the 1st carpometacarpal. POS: [facility]
--- NOTE | 2017-02-19 13:49 | RAD ---
LEFT HAND 3 VIEWS: HISTORY: Hand pain. FINDINGS: Moderate to severe degenerative changes of the 1st carpometacarpal. There is collapse of the trapezi um. No acute carpal fracture identified. Metacarpals and phalanges appear intact. Narrowing of the MCP joints, particularly prominent involving the 2nd and 3rd MCP joints. Degenerative changes of th e IP joints of all fingers. Cystic change is seen in the phalanges. IMPRESSION: There are moderate degenerative changes throughout the left hand as described. No acute fracture. POS: [facility]
[2017-02-19] MEDS: Warfarin Sodium 5 MG TAB PO SCH (18:05)
[2017-02-19] MEDS: Melatonin 3 MG TAB PO SCH (20:56)
[2017-02-20] MEDS: HumaLOG 300 UNITS/3 ML VIAL SC PRN (05:54)
[2017-02-20 06:01] LABS: Hematocrit 41.1 % (42.0-52.0)
[2017-02-20 06:08] LABS: Prothrombin Time 17.3 SEC (12.0-14.7)
[2017-02-20 06:12] LABS: Calc. Creatinine Clearance 92 mL/min (70-130); Estimated GFR-MDRD Greater than 90
[2017-02-20] MEDS: Enoxaparin Sodium 80 MG/0.8 ML SYRINGE SC SCH ×2 (08:20→21:08)
[2017-02-20] MEDS: Famotidine 20 MG TAB PO SCH ×2 (08:21→21:10)
[2017-02-20] MEDS: glyBURIDE 5 MG TAB PO SCH (08:21)
[2017-02-20] MEDS: Acetaminophen 325 MG TAB PO PRN (08:21)
[2017-02-20] MEDS: Tamsulosin HCl 0.4 MG CAP PO SCH (08:21)
[2017-02-20] MEDS: metFORMIN 500 MG TAB PO SCH ×2 (08:22→17:26)
[2017-02-20] MEDS: Ferrous Gluconate 324 MG TAB PO SCH ×2 (08:22→17:26)
--- NOTE | 2017-02-20 10:24 | PDOC.PN ---
- Subjective Encounter Start Date: 02/20/17 Encounter Start Time: 07:55 Patient seen and examined. No new complaints. No overnight events - Objective MAR Reviewed: Yes Vital Signs & Weight: Vital Signs (12 hours) Temp Pulse Resp BP Pulse Ox 02/20/17 07:12 97.2 F L 84 18 130/78 88 L 02/20/17 04:00 98.7 F 81 20 146/66 H 90 L 02/20/17 00:00 98.6 F 75 18 124/77 94 L Weight Admit Weight 166 lb 11.2 oz Weight 170 lb I&O: 02/19/17 02/20/17 02/21/17 06:59 06:59 06:59 Intake Total 360 1810 Output Total 725 500 Balance -365 1310 Result Diagrams: 02/20/17 05:07 02/20/17 05:07 Additional Labs: Accuchecks 02/20/17 02/19/17 02/19/17 05:44 20:01 17:10 POC Glucose 206 H 240 H 184 H 02/19/17 11:37 POC Glucose 188 H Radiology Reviewed by me: Yes (xray hand) EKG Reviewed by me: Yes (nsr) Phys Exam - Physical Examination Constitutional: NAD HEENT: PERRLA, moist MMs, sclera anicteric Neck: no JVD, supple Respiratory: no wheezing, no rales, no rhonchi Cardiovascular: RRR, no significant murmur, no rub Gastrointestinal: soft, non-tender, no distention, positive bowel sounds Musculoskeletal: no edema, pulses present Neurological: non-focal, normal sensation, moves all 4 limbs Psychiatric: normal affect, A&O x 3 Skin: no rash, normal turgor Dx/Plan (1) Bilateral pulmonary embolism Code(s): I26.99 - OTHER PULMONARY EMBOLISM WITHOUT ACUTE COR PULMONALE Status : Acute (2) New onset type 2 diabetes mellitus Code(s): E11.9 - TYPE 2 DIABETES MELLITUS WITHOUT COMPLICATIONS Status: Acute (3) DVT of lower extremity (deep venous thrombosis) Code(s): I82.409 - ACUTE EMBOLISM AND THOMBOS UNSP DEEP VN UNSP LOWER EXTREMITY Status: Acute (4) Hyperglycemia Code(s): R73.9 - HYPERGLYCEMIA, UNSPECIFIED Status: Acute (5) Degenerative joint disease of left shoulder Code(s): M19.012 - PRIMARY OSTEOARTHRITIS, LEFT SHOULDER Status: Chronic (6) Osteoarthritis Code(s): M19.90 - UNSPECIFIED OSTEOARTHRITIS, UNSPECIFIED SITE Status: Chronic - Plan cont current plan of care * wean off oxygen as tolerated * increase warfarin 7.5 mg po daily * continue lovenox * dc tele * transfer to medical * repeat labs tomorrow * medication reviewed as below * symptomatic treatment. Review of Systems - Review of Systems ENT: negative: Ear Pain, Ear Discharge, Nose Pain, Nose Discharge, Nose Congestion, Mouth Pain, Mouth Swelling, Throat Pain, Throat Swelling, Other Respiratory: negative: Cough, Dry, Shortness of Breath, Hemoptysis, SOB with Excertion, Pleuritic Pain, Sputum, Wheezing Cardiovascular: negative: Chest Pain, Palpitations, Orthopnea, Paroxysmal Noc. Dyspnea, Edema, Light Headedness, Other Gastrointestinal: negative: Nausea, Vomiting, Abdominal Pain, Diarrhea, Constipation, Melena, Hematochezia, Other Genitourinary: negative: Dysuria, Frequency, Incontinence, Hematuria, Retention , Other Musculoskeletal: Shoulder Pain, Hand Pain. negative: Neck Pain, Arm Pain, Back Pain, Leg Pain, Foot Pain, Other Skin: negative: Rash, Lesions, Michael, Bruising, Other - Medications/Allergies Allergies/Adverse Reactions: Allergies Allergy/AdvReac Type Severity Reaction Status Date / Time Penicillins Allergy Verified 02/16/17 22:17 Tetanus Vaccines and Toxoid Allergy Verified 02/16/17 22:17 [Tetanus Vaccines & Toxoid] Medications: Current Medications Acetaminophen (Tylenol) 650 mg PO Q4H PRN PRN Reason: Headache/Fever or Pain Last Admin: 02/20/17 08:21 Dose: 650 mg Hydrocodone Bitart/Acetaminophen ([place] 5/325) 1 tab PO Q4H PRN PRN Reason: Moderate Pain (4-6) Hydrocodone Bitart/Acetaminophen ([place] 10/325) 1 tab PO Q4H PRN PRN Reason: Pain 7-10 Al Hydroxide/Mg Hydroxide (Maalox) 15 ml PO Q4H PRN PRN Reason: Heartburn or Indigestion Artificial Tears (Tears Naturale) 0 drop EA EYE PRN PRN PRN Reason: Dry Eyes Dextrose/Water (Dextrose 50%) 25 gm SLOW IVP PRN PRN PRN Reason: Hypoglycemia Enoxaparin Sodium (Lovenox) 75 mg SC 0900,2100 [facility] Last Admin: 02/20/17 08:20 Dose: 75 mg Famotidine (Pepcid) 20 mg PO BID [facility] Last Admin: 02/20/17 08:21 Dose: 20 mg Ferrous Gluconate (Fergon) 324 mg PO BID-[facility] Last Admin: 02/20/17 08:22 Dose: 324 mg Glucagon (Glucagon) 1 mg IM PRN PRN PRN Reason: Hypoglycemia Glyburide (Diabeta) 5 mg PO QAM-[facility] Last Admin: 02/20/17 08:21 Dose: 5 mg Guaifenesin (Robitussin Sf) 200 mg PO Q4H PRN PRN Reason: Cough Guaifenesin/Dextromethorphan (Robitussin Dm) 15 ml PO Q4H PRN PRN Reason: Cough Hydralazine HCl (Apresoline) 10 mg SLOW IVP Q4H PRN PRN Reason: Systolic BP > 180 Dextrose/Water (D5w) 1,000 mls @ 0 mls/hr IV .Q0M PRN; As Directed PRN Reason: Hypoglycemia Insulin Human Lispro (Humalog) 0 units SC .MODERATE SLIDING SC PRN PRN Reason: Moderate Correctional Scale Last Admin: 02/20/17 05:54 Dose: 4 unit Insulin Human Lispro (Humalog) 0 units SC .BEDTIME SLIDING SC PRN PRN Reason: Bedtime Correctional Scale Last Admin: 02/19/17 20:51 Dose: 2 unit Loperamide HCl (Imodium) 2 mg PO PRN PRN PRN Reason: Diarrhea/Loose Stools Loratadine (Claritin) 10 mg PO DAILYPRN PRN PRN Reason: Sinus Symptoms Magnesium Hydroxide (Milk Of Magnesium) 30 ml PO DAILYPRN PRN PRN Reason: Constipation Last Admin: 02/18/17 10:42 Dose: 30 ml Melatonin (Melatonin) 6 mg PO [facility] Last Admin: 02/19/17 20:56 Dose: 6 mg Metformin HCl (Glucophage) 500 mg PO BID-[facility] Last Admin: 02/20/17 08:22 Dose: 500 mg Mineral Oil/White Petrolatum (Eucerin Cream) 0 gm TOP BIDPRN PRN PRN Reason: Dry Skin Morphine Sulfate (Morphine) 2 mg SLOW IVP Q4H PRN PRN Reason: Pain IF UNABLE TO TAKE PO Ondansetron HCl (Zofran) 4 mg IVP Q6H PRN PRN Reason: Nausea/Vomiting Ondansetron HCl (Zofran Odt) 4 mg PO Q6H PRN PRN Reason: Nausea/Vomiting Phenol (Chloraseptic [place] 180 Ml Bot) 0 ml PO PRN PRN PRN Reason: Sore Throat Senna (Senokot) 2 tab PO HSPRN PRN PRN Reason: Constipation Sodium Chloride (Flush - Normal Saline) 10 ml IVF Q12HR [facility] Last Admin: 02/20/17 08:20 Dose: 10 ml Sodium Chloride (Flush - Normal Saline) 10 ml IVF PRN PRN PRN Reason: Saline Flush Sodium Chloride ([place] Nasal [place] 0.65%) 0 ml EA NARE QIDPRN PRN PRN Reason: Nasal Congestion Tamsulosin HCl (Flomax) 0.4 mg PO DAILY [facility] Last Admin: 02/20/17 08:21 Dose: 0.4 mg Temazepam (Restoril) 15 mg PO HSPRN PRN PRN Reason: Insomnia Warfarin Sodium (Coumadin) 7.5 mg PO 1700 [facility]
[2017-02-20] MEDS: Warfarin Sodium 7.5 MG TAB PO SCH (17:26)
[2017-02-20] MEDS: Melatonin 3 MG TAB PO SCH (21:25)
[2017-02-21] MEDS: Acetaminophen 325 MG TAB PO PRN (04:09)
[2017-02-21 06:34] LABS: Prothrombin Time 19.1 SEC (12.0-14.7)
[2017-02-21] MEDS: Ferrous Gluconate 324 MG TAB PO SCH ×2 (08:25→17:27)
[2017-02-21] MEDS: Famotidine 20 MG TAB PO SCH ×2 (08:25→20:42)
[2017-02-21] MEDS: Tamsulosin HCl 0.4 MG CAP PO SCH (08:25)
[2017-02-21] MEDS: metFORMIN 500 MG TAB PO SCH ×2 (08:25→17:26)
[2017-02-21] MEDS: glyBURIDE 5 MG TAB PO SCH (08:25)
[2017-02-21] MEDS: Enoxaparin Sodium 80 MG/0.8 ML SYRINGE SC SCH ×2 (08:26→20:41)
--- NOTE | 2017-02-21 09:19 | PDOC.PN ---
- Subjective Encounter Start Date: 02/21/17 Encounter Start Time: 07:10 Patient seen and examined. No new complaints. No overnight events - Objective MAR Reviewed: Yes Vital Signs & Weight: Vital Signs (12 hours) Temp Pulse Resp BP BP Pulse Ox 02/21/17 07:32 97.9 F 78 24 H 135/79 92 L 02/21/17 05:10 95 02/21/17 04:03 98.1 F 81 16 133/89 95 02/21/17 00:40 97.9 F 77 16 129/84 95 Weight Admit Weight 166 lb 11.2 oz Weight 163 lb I&O: 02/20/17 02/21/17 02/22/17 06:59 06:59 06:59 Intake Total 1810 934 Output Total 500 850 Balance 1310 84 Result Diagrams: 02/20/17 05:07 02/20/17 05:07 Additional Labs: Accuchecks 02/21/17 02/20/17 02/20/17 05:44 21:07 16:22 POC Glucose 145 H 168 H 149 H 02/20/17 11:04 POC Glucose 148 H Phys Exam - Physical Examination Constitutional: NAD HEENT: PERRLA, moist MMs, sclera anicteric Neck: no JVD, supple Respiratory: no wheezing, no rales, no rhonchi Cardiovascular: RRR, no significant murmur, no rub Gastrointestinal: soft, non-tender, no distention, positive bowel sounds Musculoskeletal: no edema, pulses present Neurological: non-focal, normal sensation, moves all 4 limbs Psychiatric: normal affect, A&O x 3 Skin: no rash, normal turgor Dx/Plan (1) Bilateral pulmonary embolism Code(s): I26.99 - OTHER PULMONARY EMBOLISM WITHOUT ACUTE COR PULMONALE Status : Acute (2) New onset type 2 diabetes mellitus Code(s): E11.9 - TYPE 2 DIABETES MELLITUS WITHOUT COMPLICATIONS Status: Acute (3) DVT of lower extremity (deep venous thrombosis) Code(s): I82.409 - ACUTE EMBOLISM AND THOMBOS UNSP DEEP VN UNSP LOWER EXTREMITY Status: Acute (4) Hyperglycemia Code(s): R73.9 - HYPERGLYCEMIA, UNSPECIFIED Status: Acute (5) Degenerative joint disease of left shoulder Code(s): M19.012 - PRIMARY OSTEOARTHRITIS, LEFT SHOULDER Status: Chronic (6) Osteoarthritis Code(s): M19.90 - UNSPECIFIED OSTEOARTHRITIS, UNSPECIFIED SITE Status: Chronic (7) BPH (benign prostatic hyperplasia) Code(s): N40.0 - BENIGN PROSTATIC HYPERPLASIA WITHOUT LOWER URINRY TRACT SYMP Status: Chronic (8) Complex renal cyst Code(s): N28.1 - CYST OF KIDNEY, ACQUIRED Status: Chronic (9) Diverticulosis Code(s): K57.90 - DVRTCLOS OF INTEST, PART UNSP, W/O PERF OR ABSCESS W/O BLEED Status: Chronic (10) Hepatic steatosis Code(s): K76.0 - FATTY (CHANGE OF) LIVER, NOT ELSEWHERE CLASSIFIED Status: Chronic - Plan cont current plan of care * his INR is 1.6 today * once it reaches 2, then will consider discharge with warfarin * medication reviewed as below * symptomatic treatment * medically stable * he has bloating after food, but he had EGD and colonoscopy 3 weeks ago at [facility], he will follow up with his GI. continue mallox or Tums prn Review of Systems - Review of Systems Constitutional: negative: Fever, Chills, Sweats, Weakness, Malaise, Other Eyes: negative: Pain, Vision Change, Conjunctivae Inflammation, Eyelid Inflammation, Redness, Other Respiratory: negative: Cough, Dry, Shortness of Breath, Hemoptysis, SOB with Excertion, Pleuritic Pain, Sputum, Wheezing Cardiovascular: negative: Chest Pain, Palpitations, Orthopnea, Paroxysmal Noc. Dyspnea, Edema, Light Headedness, Other Gastrointestinal: negative: Nausea, Vomiting, Abdominal Pain, Diarrhea, Constipation, Melena, Hematochezia, Other Genitourinary: negative: Dysuria, Frequency, Incontinence, Hematuria, Retention , Other Musculoskeletal: negative: Neck Pain, Shoulder Pain, Arm Pain, Back Pain, Hand Pain, Leg Pain, Foot Pain, Other Skin: negative: Rash, Lesions, Michael, Bruising, Other - Medications/Allergies Allergies/Adverse Reactions: Allergies Allergy/AdvReac Type Severity Reaction Status Date / Time Penicillins Allergy Verified 02/16/17 22:17 Tetanus Vaccines and Toxoid Allergy Verified 02/16/17 22:17 [Tetanus Vaccines & Toxoid] Medications: Current Medications Acetaminophen (Tylenol) 650 mg PO Q4H PRN PRN Reason: Headache/Fever or Pain Last Admin: 02/21/17 04:09 Dose: 650 mg Hydrocodone Bitart/Acetaminophen ([place] 5/325) 1 tab PO Q4H PRN PRN Reason: Moderate Pain (4-6) Hydrocodone Bitart/Acetaminophen ([place] 10/325) 1 tab PO Q4H PRN PRN Reason: Pain 7-10 Al Hydroxide/Mg Hydroxide (Maalox) 15 ml PO Q4H PRN PRN Reason: Heartburn or Indigestion Artificial Tears (Tears Naturale) 0 drop EA EYE PRN PRN PRN Reason: Dry Eyes Dextrose/Water (Dextrose 50%) 25 gm SLOW IVP PRN PRN PRN Reason: Hypoglycemia Enoxaparin Sodium (Lovenox) 75 mg SC 0900,2100 [facility] Last Admin: 02/21/17 08:26 Dose: 75 mg Famotidine (Pepcid) 20 mg PO BID [facility] Last Admin: 02/21/17 08:25 Dose: 20 mg Ferrous Gluconate (Fergon) 324 mg PO BID-[facility] Last Admin: 02/21/17 08:25 Dose: 324 mg Glucagon (Glucagon) 1 mg IM PRN PRN PRN Reason: Hypoglycemia Glyburide (Diabeta) 5 mg PO QAM-[facility] Last Admin: 02/21/17 08:25 Dose: 5 mg Guaifenesin (Robitussin Sf) 200 mg PO Q4H PRN PRN Reason: Cough Guaifenesin/Dextromethorphan (Robitussin Dm) 15 ml PO Q4H PRN PRN Reason: Cough Hydralazine HCl (Apresoline) 10 mg SLOW IVP Q4H PRN PRN Reason: Systolic BP > 180 Dextrose/Water (D5w) 1,000 mls @ 0 mls/hr IV .Q0M PRN; As Directed PRN Reason: Hypoglycemia Insulin Human Lispro (Humalog) 0 units SC .MODERATE SLIDING SC PRN PRN Reason: Moderate Correctional Scale Last Admin: 02/20/17 05:54 Dose: 4 unit Insulin Human Lispro (Humalog) 0 units SC .BEDTIME SLIDING SC PRN PRN Reason: Bedtime Correctional Scale Last Admin: 02/19/17 20:51 Dose: 2 unit Loperamide HCl (Imodium) 2 mg PO PRN PRN PRN Reason: Diarrhea/Loose Stools Loratadine (Claritin) 10 mg PO DAILYPRN PRN PRN Reason: Sinus Symptoms Magnesium Hydroxide (Milk Of Magnesium) 30 ml PO DAILYPRN PRN PRN Reason: Constipation Last Admin: 02/18/17 10:42 Dose: 30 ml Melatonin (Melatonin) 6 mg PO HS [facility] Last Admin: 02/20/17 21:25 Dose: 6 mg Metformin HCl (Glucophage) 500 mg PO BID-[facility] Last Admin: 02/21/17 08:25 Dose: 500 mg Mineral Oil/White Petrolatum (Eucerin Cream) 0 gm TOP BIDPRN PRN PRN Reason: Dry Skin Morphine Sulfate (Morphine) 2 mg SLOW IVP Q4H PRN PRN Reason: Pain IF UNABLE TO TAKE PO Ondansetron HCl (Zofran) 4 mg IVP Q6H PRN PRN Reason: Nausea/Vomiting Ondansetron HCl (Zofran Odt) 4 mg PO Q6H PRN PRN Reason: Nausea/Vomiting Phenol (Chloraseptic [place] 180 Ml Bot) 0 ml PO PRN PRN PRN Reason: Sore Throat Senna (Senokot) 2 tab PO HSPRN PRN PRN Reason: Constipation Sodium Chloride (Flush - Normal Saline) 10 ml IVF Q12HR [facility] Last Admin: 02/21/17 08:28 Dose: 10 ml Sodium Chloride (Flush - Normal Saline) 10 ml IVF PRN PRN PRN Reason: Saline Flush Sodium Chloride ([place] Nasal [place] 0.65%) 0 ml EA NARE QIDPRN PRN PRN Reason: Nasal Congestion Tamsulosin HCl (Flomax) 0.4 mg PO DAILY [facility] Last Admin: 02/21/17 08:25 Dose: 0.4 mg Temazepam (Restoril) 15 mg PO HSPRN PRN PRN Reason: Insomnia Warfarin Sodium (Coumadin) 7.5 mg PO 1700 [facility] Last Admin: 02/20/17 17:26 Dose: 7.5 mg
[2017-02-21] MEDS ORDERED: Calcium Carbonate 500 MG ChewTAB PO PRN (09:20)
[2017-02-21] MEDS: Warfarin Sodium 7.5 MG TAB PO SCH (17:27)
[2017-02-21] MEDS: Milk Of Magnesia 30 ML UDCUP PO PRN (17:33)
[2017-02-21] MEDS: Melatonin 3 MG TAB PO SCH (20:42)
[2017-02-22 05:33] LABS: Hematocrit 40.4 % (42.0-52.0)
[2017-02-22 05:48] LABS: Calc. Creatinine Clearance 92 mL/min (70-130); Estimated GFR-MDRD Greater than 90
[2017-02-22 06:46] LABS: Prothrombin Time 20.7 SEC (12.0-14.7)
[2017-02-22] MEDS: metFORMIN 500 MG TAB PO SCH ×2 (08:30→16:01)
[2017-02-22] MEDS: Tamsulosin HCl 0.4 MG CAP PO SCH (08:30)
[2017-02-22] MEDS: Ferrous Gluconate 324 MG TAB PO SCH ×2 (08:30→16:01)
[2017-02-22] MEDS: glyBURIDE 5 MG TAB PO SCH (08:30)
[2017-02-22] MEDS: Famotidine 20 MG TAB PO SCH ×2 (08:30→21:00)
[2017-02-22] MEDS: Enoxaparin Sodium 80 MG/0.8 ML SYRINGE SC SCH ×2 (08:31→20:58)
[2017-02-22 09:58] VITALS: BMI 23.2
--- NOTE | 2017-02-22 11:24 | PDOC.PN ---
- Subjective Encounter Start Date: 02/22/17 Encounter Start Time: 07:00 Patient seen and examined. No new complaints. No overnight events - Objective MAR Reviewed: Yes Vital Signs & Weight: Vital Signs (12 hours) Temp Pulse Resp BP Pulse Ox 02/22/17 08:00 97.8 F 67 20 97 02/22/17 07:15 97.8 F 67 20 128/74 97 Weight Admit Weight 166 lb 11.2 oz Weight 161 lb 13.109 oz I&O: 02/21/17 02/22/17 02/23/17 06:59 06:59 06:59 Intake Total 934 Output Total 850 Balance 84 Result Diagrams: 02/22/17 05:25 02/22/17 05:25 Additional Labs: Accuchecks 02/22/17 02/21/17 02/21/17 05:42 20:41 16:13 POC Glucose 118 H 132 H 152 H 02/21/17 11:27 POC Glucose 118 H Phys Exam - Physical Examination Constitutional: NAD HEENT: PERRLA, moist MMs, sclera anicteric Neck: no JVD, supple Respiratory: no wheezing, no rales, no rhonchi Cardiovascular: RRR, no significant murmur, no rub Gastrointestinal: soft, non-tender, no distention, positive bowel sounds Musculoskeletal: no edema, pulses present Neurological: non-focal, normal sensation Lymphatic: no nodes Psychiatric: normal affect Skin: no rash, normal turgor Dx/Plan (1) Bilateral pulmonary embolism Code(s): I26.99 - OTHER PULMONARY EMBOLISM WITHOUT ACUTE COR PULMONALE Status : Acute (2) New onset type 2 diabetes mellitus Code(s): E11.9 - TYPE 2 DIABETES MELLITUS WITHOUT COMPLICATIONS Status: Acute (3) DVT of lower extremity (deep venous thrombosis) Code(s): I82.409 - ACUTE EMBOLISM AND THOMBOS UNSP DEEP VN UNSP LOWER EXTREMITY Status: Acute (4) Hyperglycemia Code(s): R73.9 - HYPERGLYCEMIA, UNSPECIFIED Status: Acute (5) Degenerative joint disease of left shoulder Code(s): M19.012 - PRIMARY OSTEOARTHRITIS, LEFT SHOULDER Status: Chronic (6) Osteoarthritis Code(s): M19.90 - UNSPECIFIED OSTEOARTHRITIS, UNSPECIFIED SITE Status: Chronic (7) BPH (benign prostatic hyperplasia) Code(s): N40.0 - BENIGN PROSTATIC HYPERPLASIA WITHOUT LOWER URINRY TRACT SYMP Status: Chronic (8) Complex renal cyst Code(s): N28.1 - CYST OF KIDNEY, ACQUIRED Status: Chronic (9) Diverticulosis Code(s): K57.90 - DVRTCLOS OF INTEST, PART UNSP, W/O PERF OR ABSCESS W/O BLEED Status: Chronic (10) Hepatic steatosis Code(s): K76.0 - FATTY (CHANGE OF) LIVER, NOT ELSEWHERE CLASSIFIED Status: Chronic - Plan cont current plan of care, plan discussed w/ family * medication reviewed as below * symptomatic treatment * medically stable with current treatment * discussed with family * await INR to be therapeutic * expecting discharge tomorrow. Review of Systems - Review of Systems ENT: negative: Ear Pain, Ear Discharge, Nose Pain, Nose Discharge, Nose Congestion, Mouth Pain, Mouth Swelling, Throat Pain, Throat Swelling, Other Respiratory: negative: Cough, Dry, Shortness of Breath, Hemoptysis, SOB with Excertion, Pleuritic Pain, Sputum, Wheezing Cardiovascular: negative: Chest Pain, Palpitations, Orthopnea, Paroxysmal Noc. Dyspnea, Edema, Light Headedness, Other Gastrointestinal: negative: Nausea, Vomiting, Abdominal Pain, Diarrhea, Constipation, Melena, Hematochezia, Other Genitourinary: negative: Dysuria, Frequency, Incontinence, Hematuria, Retention , Other Musculoskeletal: negative: Neck Pain, Shoulder Pain, Arm Pain, Back Pain, Hand Pain, Leg Pain, Foot Pain, Other - Medications/Allergies Allergies/Adverse Reactions: Allergies Allergy/AdvReac Type Severity Reaction Status Date / Time Penicillins Allergy Verified 02/16/17 22:17 Tetanus Vaccines and Toxoid Allergy Verified 02/16/17 22:17 [Tetanus Vaccines & Toxoid] Medications: Current Medications Acetaminophen (Tylenol) 650 mg PO Q4H PRN PRN Reason: Headache/Fever or Pain Last Admin: 02/21/17 04:09 Dose: 650 mg Hydrocodone Bitart/Acetaminophen ([place] 5/325) 1 tab PO Q4H PRN PRN Reason: Moderate Pain (4-6) Hydrocodone Bitart/Acetaminophen ([place] 10/325) 1 tab PO Q4H PRN PRN Reason: Pain 7-10 Al Hydroxide/Mg Hydroxide (Maalox) 15 ml PO Q4H PRN PRN Reason: Heartburn or Indigestion Artificial Tears (Tears Naturale) 0 drop EA EYE PRN PRN PRN Reason: Dry Eyes Calcium Carbonate (Tums) 1,000 mg PO Q4H PRN PRN Reason: Heartburn or Indigestion Dextrose/Water (Dextrose 50%) 25 gm SLOW IVP PRN PRN PRN Reason: Hypoglycemia Enoxaparin Sodium (Lovenox) 75 mg SC 0900,2100 [facility] Last Admin: 02/22/17 08:31 Dose: 75 mg Famotidine (Pepcid) 20 mg PO BID [facility] Last Admin: 02/22/17 08:30 Dose: 20 mg Ferrous Gluconate (Fergon) 324 mg PO BID-[facility] Last Admin: 02/22/17 08:30 Dose: 324 mg Glucagon (Glucagon) 1 mg IM PRN PRN PRN Reason: Hypoglycemia Glyburide (Diabeta) 5 mg PO QAM-[facility] Last Admin: 02/22/17 08:30 Dose: 5 mg Guaifenesin (Robitussin Sf) 200 mg PO Q4H PRN PRN Reason: Cough Guaifenesin/Dextromethorphan (Robitussin Dm) 15 ml PO Q4H PRN PRN Reason: Cough Hydralazine HCl (Apresoline) 10 mg SLOW IVP Q4H PRN PRN Reason: Systolic BP > 180 Dextrose/Water (D5w) 1,000 mls @ 0 mls/hr IV .Q0M PRN; As Directed PRN Reason: Hypoglycemia Insulin Human Lispro (Humalog) 0 units SC .MODERATE SLIDING SC PRN PRN Reason: Moderate Correctional Scale Last Admin: 02/20/17 05:54 Dose: 4 unit Insulin Human Lispro (Humalog) 0 units SC .BEDTIME SLIDING SC PRN PRN Reason: Bedtime Correctional Scale Last Admin: 02/19/17 20:51 Dose: 2 unit Loperamide HCl (Imodium) 2 mg PO PRN PRN PRN Reason: Diarrhea/Loose Stools Loratadine (Claritin) 10 mg PO DAILYPRN PRN PRN Reason: Sinus Symptoms Magnesium Hydroxide (Milk Of Magnesium) 30 ml PO DAILYPRN PRN PRN Reason: Constipation Last Admin: 02/21/17 17:33 Dose: 30 ml Melatonin (Melatonin) 6 mg PO [facility] Last Admin: 02/21/17 20:42 Dose: 6 mg Metformin HCl (Glucophage) 500 mg PO BID-[facility] Last Admin: 02/22/17 08:30 Dose: 500 mg Mineral Oil/White Petrolatum (Eucerin Cream) 0 gm TOP BIDPRN PRN PRN Reason: Dry Skin Morphine Sulfate (Morphine) 2 mg SLOW IVP Q4H PRN PRN Reason: Pain IF UNABLE TO TAKE PO Ondansetron HCl (Zofran) 4 mg IVP Q6H PRN PRN Reason: Nausea/Vomiting Ondansetron HCl (Zofran Odt) 4 mg PO Q6H PRN PRN Reason: Nausea/Vomiting Phenol (Chloraseptic [place] 180 Ml Bot) 0 ml PO PRN PRN PRN Reason: Sore Throat Senna (Senokot) 2 tab PO HSPRN PRN PRN Reason: Constipation Sodium Chloride (Flush - Normal Saline) 10 ml IVF Q12HR [facility] Last Admin: 02/22/17 08:30 Dose: 10 ml Sodium Chloride (Flush - Normal Saline) 10 ml IVF PRN PRN PRN Reason: Saline Flush Sodium Chloride ([place] Nasal [place] 0.65%) 0 ml EA NARE QIDPRN PRN PRN Reason: Nasal Congestion Tamsulosin HCl (Flomax) 0.4 mg PO DAILY [facility] Last Admin: 02/22/17 08:30 Dose: 0.4 mg Temazepam (Restoril) 15 mg PO HSPRN PRN PRN Reason: Insomnia Warfarin Sodium (Coumadin) 7.5 mg PO 1700 [facility] Last Admin: 02/21/17 17:27 Dose: 7.5 mg
[2017-02-22] MEDS: Warfarin Sodium 7.5 MG TAB PO SCH (16:01)
[2017-02-22] MEDS: HumaLOG 300 UNITS/3 ML VIAL SC PRN (18:17)
[2017-02-22] MEDS: Melatonin 3 MG TAB PO SCH (21:01)
[2017-02-23] MEDS ORDERED: diphenhydrAMINE 25 MG CAP PO SCH (02:45)
[2017-02-23 06:02] LABS: Prothrombin Time 23.6 SEC (12.0-14.7)
[2017-02-23 07:53] VITALS: BP 128/77
[2017-02-23 08:22] VITALS: TEMP 98.1
[2017-02-23] MEDS: Famotidine 20 MG TAB PO SCH (09:15)
[2017-02-23] MEDS: glyBURIDE 5 MG TAB PO SCH (09:16)
[2017-02-23] MEDS: Ferrous Gluconate 324 MG TAB PO SCH (09:16)
[2017-02-23] MEDS: Enoxaparin Sodium 80 MG/0.8 ML SYRINGE SC SCH (09:16)
[2017-02-23] MEDS: Tamsulosin HCl 0.4 MG CAP PO SCH (09:16)
[2017-02-23] MEDS: metFORMIN 500 MG TAB PO SCH (09:16)
--- NOTE | 2017-02-23 11:57 | DIS ---
PRIMARY CARE PHYSICIAN: Sara Ponce M.D. DATE OF ADMISSION: 02/16/2017 DATE OF DISCHARGE: 02/23/2017 DISCHARGE DISPOSITION: Home. PRIMARY DISCHARGE DIAGNOSES: 1. Bilateral pulmonary embolism. 2. Right lower extremity deep vein thromboses. 3. New onset diabetes type 2 with hyperglycemia. 4. Complex renal cyst, fatty liver. SECONDARY DISCHARGE DIAGNOSES: Osteoarthritis, diverticulosis, osteoarthritis of left shoulder, hitesh gn enlargement of prostate. PRIMARY PROCEDURE/OPERATION: None. RADIOLOGICAL INVESTIGATION: Ultrasound of lower extremity positive for right lower extremity deep ve in thrombosis. The patient had CT angiography at [facility] which showed bilateral pulmonary embolism. Abdomen and pelvis CT scan showed complex renal cyst, diverticulosis. Wrist x-r ay showed osteoarthritis. SIGNIFICANT LABS: WBC 7.3, hemoglobin 13.3, platelets 314. INR 2.0. Sodium 131, potassium 4.3, BUN 12, creatinine 0.82, calcium 9.9, hemoglobin A1c 9.8, AST 33, ALT 22, alkaline phosphatase 87. Urin alysis unremarkable. Stool for guaiac positive. DISCHARGE MEDICATIONS: Aspirin 81 mg p.o. daily, Pepcid 20 mg p.o. b.i.d., ferrous gluconate 324 mg p.o. b.i.d., gabapentin 600 mg p.o. daily p.r.n., glucosamine 1 tablet p.o. daily, Diabeta 5 mg p.o. daily, metformin 500 mg p.o. b.i.d., multivitamin 1 tablet p.o. daily, Flomax 0.4 mg p.o. daily, warf javier 7.5 mg p.o. daily, goal of INR is 2-3. CONTRAINDICATIONS: None. CODE STATUS: FULL CODE. INPATIENT CONSULTANTS: None. ALLERGIES: PENICILLIN, TETANUS TOXOID. DISCHARGE PLAN: Post hospital, the patient will follow up with primary care physician in 1 week. patient has an appointment with Dr. Ella Rodriguez on an outpatient basis. The patient will fol low up with the Coumadin clinic if needed. HOSPITAL COURSE: A 76-year-old male with the above mentioned medical problem, who initially went to [facility] with complaint of chest pain and shortness of breath. Over there, the pa tient had CT angiography which showed bilateral pulmonary embolism. He was also hurting in his right ear and he was having dizziness and left shoulder pain. His right ear pain was related with his wax and that is why I advised him to go to ENT doctor for treatment. His dizziness was related with pul monary embolism, which was treated with anticoagulation therapy and he has left shoulder pain which i s chronic and that was controlled with pain medication while in hospital. We did ultrasound of the lower extremity, there was positive for deep vein thrombosis. Most likely t his patient was immobile and less ambulatory after the surgery on his left shoulder and that might ro ve contributed to his DVT and PE. This patient already had upper and lower endoscopy recently at [facility] and that is why I advised him to follow up with [facility]. His stool for guaiac w as positive, but his H&H remained stable and he was also constipated and he had already recently uppe r and lower endoscopy that is why we did not pursue anymore testing. This patient was complaining of wrist pain and hand pain and that is why we did x-ray and that was only showing osteoarthritis. We advised him to avoid NSAIDs. His INR was therapeutic by the time of discharge. While in hospital, he also had new onset diabetes. His hemoglobin A1c was 9.8. We started metformin and glyburide and with that blood sugar was well controlled. We provided diabetes education and we have advised him to keep a control of blood sugar at home as well and follow up with primary care lulu antunez for further adjustment of therapy. The patient was also given education about warfarin diet. We discussed with the new anticoagulant th erapy while in hospital, but patient chose warfarin while in the hospital. He required Lovenox and w arfarin up until today for INR to be therapeutic. All new medication prescription sent to his pharmacy today. The patient is seen and examined at bedside today. Review of systems reviewed and negative. Plan of care discussed with the family member at bedside. PHYSICAL EXAMINATION: VITAL SIGNS: Currently, temperature 97.8, pulse 75, respiratory rate 18, saturation 94%, blood press ure 128/77 and weight 162 pounds. GENERAL: The patient is currently alert, awake, no acute distress. HEAD: Normocephalic, atraumatic. EYES: Pupils round, reactive to light. Extraocular muscle intact. ENT: Oropharynx within normal limits. Moist mucous membranes. No oral lesions. No pharyngeal eryt amisha, no exudates. NECK: Supple, no JVD, no thyromegaly, no carotid bruit. No jugular venous distention. LUNGS: Clear to auscultation without any rhonchi or rales. CARDIAC: S1, S2 regular without any murmur. ABDOMEN: Soft and benign. EXTREMITIES: No edema. NEUROLOGIC: Nonfocal examination. Overall, this patient is medically stable for discharge today. Total time spent on discharge day was more than 30 minutes.
== END 2017-02-23 12:07 | disposition home or self-care (01) | DRG 176 ==
LOC: ERS 16:29 → 2NO 19:14 → ONC 02-20 15:19
PROVIDERS: ADMIT Internal Medicine; ATTEND Internal Medicine
DX: I26.99 Other pulmonary embolism without acute cor pulmonale (principal); I82.401 Acute embolism and thrombosis of unspecified deep veins of right lower extremity; E11.65 Type 2 diabetes mellitus with hyperglycemia; Z96.612 Presence of left artificial shoulder joint; Z96.642 Presence of left artificial hip joint; N28.1 Cyst of kidney, acquired; K76.0 Fatty (change of) liver, not elsewhere classified; K57.90 Diverticulosis of intestine, part unspecified, without perforation or abscess without bleeding; M19.012 Primary osteoarthritis, left shoulder; N40.0 Benign prostatic hyperplasia without lower urinary tract symptoms; M19.039 Primary osteoarthritis, unspecified wrist
CPT/HCPCS: 36415; 36416; 74178; 80048; 80076; 81003; 81015; 82274; 82565; 83036; 85014; 85018; 85025; 85379; 85610; 93970; 94760; A4216; J1650

== ENCOUNTER 2017-04-19 14:41 | Outpatient (CLI) | payer MEDICARE, BC ==
--- NOTE | 2017-04-19 15:23 | RAD ---
CHEST TWO VIEWS: History: Dyspnea. Comparison: None. FINDINGS: Normal cardiac silhouette. The pulmonary vessels and hilum are normal. Pleural and parenchy mal changes are suspected in the right lung base. Adequate aeration of the upper lungs. No pneumothor ax. Incompletely evaluated left humeral prosthesis. IMPRESSION: Pleural and parenchymal changes in the left lung base. POS: [facility]
== END 2017-04-19 14:42 | disposition home or self-care (01) ==
LOC: RAD 14:41
PROVIDERS: ATTEND Internal Medicine Pulmonary Disease
DX: R06.00 Dyspnea, unspecified (principal); J98.4 Other disorders of lung
CPT/HCPCS: 71046

== ENCOUNTER 2017-08-15 13:09 | Outpatient (CLI) | payer MEDICARE, BC ==
[~2017-08-15 13:09] MED LIST: Iopamidol 370 76% 100 ML VIAL ONE
== END 2017-08-15 13:10 | disposition home or self-care (01) ==
LOC: BICCT 13:09
PROVIDERS: ATTEND Urology
DX: N28.1 Cyst of kidney, acquired (principal); R81 Glycosuria; Z51.81 Encounter for therapeutic drug level monitoring; I26.99 Other pulmonary embolism without acute cor pulmonale; Z79.01 Long term (current) use of anticoagulants
CPT/HCPCS: 74170

== ENCOUNTER 2023-09-03 18:00 | Inpatient (IN) | payer MEDICARE, BC ==
[~2023-09-03 18:00] MED LIST changes: -Iopamidol 370 76% 100 ML VIAL ONE; +Iopamidol-370 76% 500 ML MDV (1 ML CHARGE) ONE
[2023-09-03] MEDS ORDERED: Sodium Chloride 0.9% 100 ML ONE (18:54)
[2023-09-03] MEDS ORDERED: Cefepime 2 GM VIAL ONE (18:54)
[2023-09-03 19:01] LABS: Hematocrit 39.1 % (42.0-52.0); Hemoglobin 12.3 g/dL (14.0-18.0); Mean Corpuscular HGB CONC 31.5 g/dL (32.0-36.0); Mean Corpuscular Hemoglobin 28.9 pg (27.0-31.0); Mean Platelet Volume 9.8 fL (7.4-10.4); Platelet Count 340 10x3/uL (130-400); RBC Distribution Width 16.4 % (11.5-14.5); Red Blood Cell (RBC) Count 4.25 mill/uL (4.70-6.10)
[2023-09-03 19:18] LABS: ALT (SGPT) 21 U/L (8-55); AST (SGOT) 29 U/L (5-34); Albumin 2.4 g/dL (3.4-4.8); Alkaline Phosphatase 102 U/L (40-110); Anion Gap 26 mmol/L (10-20); BUN (Urea Nitrogen) 12 mg/dL (8.4-25.7); Bilirubin, Total 0.5 mg/dL (0.2-1.2); Calc. Creatinine Clearance 0 mL/min (70-130); Calcium 9.8 mg/dL (7.8-10.44); Carbon Dioxide 15 mmol/L (23-31); Chloride 108 mmol/L (98-107); Estimated GFR 92; Glucose 177 mg/dL (83-110); Potassium 3.6 mmol/L (3.5-5.1); Protein, Total 7.4 g/dL (5.8-8.1); Sodium 145 mmol/L (136-145)
[2023-09-03 19:19] LABS: Band 2 % (5-11); Burr Cells SLIGHT = 2-5 cells HPF (0-1); Lymphocytes 3 % (21-51); Monocytes 7 % (0-10); Neutrophil 88 % (42-75); Platelet Adequacy Comment Platelets Normal; Poikilocytosis SLIGHT = 6-15 cells HPF (0-5); Polychromasia SLIGHT = 2-3 cells HPF (0-2); Toxic Granulation MODERATE; Vacuoles SLIGHT
[2023-09-03 19:28] LABS: Bacteria/HPF None Seen HPF (None Seen); Bilirubin Negative (Negative); Blood, Urine Trace (Negative); CAUTI Indications for Culture Pelvic or flank pain; Calcium Oxalate Crystals Rare HPF (None Seen); Clarity Clear (Clear); Glucose, Urine (Dipstick) Greater than 1000 mg/dL (Negative); Ketone, Urine 100 mg/dL (Negative); Leukocyte Negative Leu/uL (Negative); Nitrite 1+ (Negative); Protein, Urine (Dipstick) 20 mg/dL (Neg-Trace); RBC/HPF 0-3 HPF (0-3); Specific Gravity, Urine 1.037 (1.002-1.036); Squamous Epithelial None Seen HPF (0-3); Urobilinogen Normal mg/dL (Less than 2)
[2023-09-03 19:32] LABS: Urine Culture Reflex No No
[2023-09-03] MEDS ORDERED: Ondansetron ODT 4 MG TAB PO PRN (21:27)
[2023-09-03] MEDS ORDERED: Glucagon 1 MG/ML KIT IM PRN (21:35)
[2023-09-03] MEDS ORDERED: Dextrose 50% Abboject 50 ML SYRINGE SLOW IVP PRN (21:35)
[2023-09-03] MEDS ORDERED: Dextrose 5% in Water 1,000 ML IV PRN (21:35)
[2023-09-03 23:00] VITALS: BMI 20.2
[2023-09-03] MEDS: Vancomycin (BATCH) 1.5 GM in Premix 1 BAG IVPB SCH (23:01)
[2023-09-03] MEDS: Albumin 25% 25 GM (100 mL) BOT IVPB SCH (23:25)
[2023-09-04 00:23] LABS: Lactic Acid 1.8 mmol/L (0.5-2.2)
[2023-09-04] MEDS: Thiamine HCl 200 MG/2 ML VIAL SLOW IVP SCH (03:06)
[2023-09-04] MEDS: Dextrose 5%-Lactated Ringers 1,000 ML IV SCH (03:10)
[2023-09-04] MEDS: Vancomycin 1 GM in Premix 1 BAG IVPB SCH (05:33)
[2023-09-04 06:00] LABS: Anion Gap 25 mmol/L (10-20); BUN (Urea Nitrogen) 11 mg/dL (8.4-25.7); Calc. Creatinine Clearance 80 mL/min (70-130); Carbon Dioxide 14 mmol/L (23-31); Chloride 113 mmol/L (98-107); Estimated GFR 94; Glucose 160 mg/dL (83-110); Potassium 2.3 mmol/L (3.5-5.1); Sodium 150 mmol/L (136-145)
[2023-09-04] MEDS: Insulin Lispro 100 UNIT/ML 10 ML VIAL SC PRN ×2 (06:13→19:27)
[2023-09-04 06:33] LABS: Hematocrit 33.2 % (42.0-52.0); Hemoglobin 10.6 g/dL (14.0-18.0); Mean Corpuscular HGB CONC 31.9 g/dL (32.0-36.0); Mean Corpuscular Volume 87.6 fL (78.0-98.0); Mean Platelet Volume 9.4 fL (7.4-10.4); Platelet Count 274 10x3/uL (130-400); RBC Distribution Width 16.3 % (11.5-14.5); Red Blood Cell (RBC) Count 3.79 mill/uL (4.70-6.10)
[2023-09-04] MEDS: Potassium Chloride 20 MEQ TAB PO SCH ×3 (06:35→18:21)
[2023-09-04] MEDS: Lactated Ringer's 500 ML IV SCH (06:44)
[2023-09-04 07:42] LABS: Anisocytosis MARKED = >30 cells HPF (0-5); Band 10 % (5-11); Burr Cells MODERATE= 6-15 cells HPF (0-1); Lymphocytes 1 % (21-51); Macrocytosis MODERATE=16-30 cells HPF (0-5); Monocytes 2 % (0-10); Neutrophil 84 % (42-75); Ovalocytes SLIGHT = 2-5 cells HPF (0-1); Platelet Adequacy Comment Platelets Normal; Poikilocytosis SLIGHT = 6-15 cells HPF (0-5); Polychromasia SLIGHT = 2-3 cells HPF (0-2)
[2023-09-04 09:00] LABS: Anion Gap 24 mmol/L (10-20); BUN (Urea Nitrogen) 11 mg/dL (8.4-25.7); Calc. Creatinine Clearance 78 mL/min (70-130); Calcium 8.9 mg/dL (7.8-10.44); Carbon Dioxide 15 mmol/L (23-31); Chloride 115 mmol/L (98-107); Estimated GFR 93; Glucose 190 mg/dL (83-110); Potassium 2.1 mmol/L (3.5-5.1); Sodium 152 mmol/L (136-145)
[2023-09-04] MEDS ORDERED: Cefepime 2 GM in Sodium Chloride 0.9% 100 ML IVPB SCH (09:00)
[2023-09-04] MEDS ORDERED: Empagliflozin 25 MG TAB PO SCH (09:00)
[2023-09-04] MEDS ORDERED: Vancomycin (BATCH) 1.5 GM in Premix 1 BAG IVPB SCH (09:00)
[2023-09-04] MEDS: Alogliptin 6.25 MG TAB PO SCH (12:03)
[2023-09-04] MEDS: Midodrine HCl 5 MG TAB PO SCH (12:03)
[2023-09-04] MEDS: Famotidine 20 MG TAB PO SCH (12:03)
[2023-09-04] MEDS: Senokot S 8.6-50 MG TAB PO SCH (12:03)
[2023-09-04] MEDS: Insulin Glargine 30 UNITS/0.3 ML VIAL SC SCH (12:03)
[2023-09-04] MEDS: Multivit, Therapeutic 1 TAB PO SCH (12:03)
[2023-09-04] MEDS: Atorvastatin Calcium 10 MG TAB PO SCH (12:03)
[2023-09-04] MEDS: Tamsulosin HCl 0.4 MG CAP PO SCH (12:03)
[2023-09-04] MEDS: Potassium Chloride 40 MEQ in Dextrose 5% in Water 1,000 ML IV SCH (14:00)
[2023-09-04] MEDS: LevoFLOXacin 750 mg/D5W 750 MG in Premix 1 BAG IVPB SCH (14:02)
[2023-09-04] MEDS: glipiZIDE XL 10 mg ER.TAB PO SCH (14:02)
[2023-09-04] MEDS: Famotidine/PF 20 mg/2ml Vial SLOW IVP SCH (14:30)
[2023-09-04] MEDS: Albumin 25% 25 GM (100 mL) BOT IVPB SCH ×2 (16:25→16:33)
[2023-09-04] MEDS: Timolol 0.5% Ophth Soln 5 ml Bottle EA EYE SCH (20:59)
[2023-09-04] MEDS ORDERED: Brimonidine Tartrate 0.2% Ophth Soln 5 ml Bottle EA EYE SCH (21:00)
[2023-09-04] MEDS: Bisacodyl 10 MG SUPP PR SCH (21:01)
[2023-09-04 23:23] LABS: Anion Gap 12 mmol/L (10-20); BUN (Urea Nitrogen) 13 mg/dL (8.4-25.7); Calc. Creatinine Clearance 87 mL/min (70-130); Carbon Dioxide 25 mmol/L (23-31); Chloride 114 mmol/L (98-107); Estimated GFR 97; Glucose 188 mg/dL (83-110); Potassium 2.8 mmol/L (3.5-5.1); Sodium 148 mmol/L (136-145)
[2023-09-05] MEDS: Brimonidine Tartrate 0.2% Ophth Soln 5 ml Bottle EA EYE SCH (00:30)
[2023-09-05] MEDS: Midodrine HCl 5 MG TAB PO SCH (00:30)
[2023-09-05 04:27] LABS: #Basophils 0.04 10x3/uL (0.0-0.2); #Eosinphils Less than 0.03 10x3/uL (0.0-0.7); %Basophils 0.3 % (0.0-1.0); %Lymphocytes 7.9 % (21.0-51.0); %Monocytes 6.7 % (0.0-10.0); %Neutrophils 82.6 % (42.0-75.0); Hematocrit 29.2 % (42.0-52.0); Hemoglobin 9.3 g/dL (14.0-18.0); Mean Corpuscular HGB CONC 31.8 g/dL (32.0-36.0); Mean Corpuscular Hemoglobin 27.8 pg (27.0-31.0); Mean Corpuscular Volume 87.4 fL (78.0-98.0); Mean Platelet Volume 9.8 fL (7.4-10.4); Platelet Count 181 10x3/uL (130-400); RBC Distribution Width 16.2 % (11.5-14.5); Red Blood Cell (RBC) Count 3.34 mill/uL (4.70-6.10)
[2023-09-05 04:58] LABS: Vancomycin, Random 11.9 ug/mL (See Comment)
[2023-09-05 05:00] LABS: Anion Gap 17 mmol/L (10-20); BUN (Urea Nitrogen) 13 mg/dL (8.4-25.7); Calc. Creatinine Clearance 101 mL/min (70-130); Calcium 8.9 mg/dL (7.8-10.44); Carbon Dioxide 19 mmol/L (23-31); Chloride 114 mmol/L (98-107); Estimated GFR 101; Glucose 211 mg/dL (83-110); Magnesium 1.9 mg/dL (1.6-2.6); Potassium 3.1 mmol/L (3.5-5.1); Sodium 147 mmol/L (136-145)
[2023-09-05] MEDS: Ondansetron PF 4 MG/2 ML Vial IVP PRN (06:12)
[2023-09-05] MEDS: Magnesium 2 GM/50 ML(in water) 2 GM in Premix 1 BAG IVPB SCH (09:44)
[2023-09-05] MEDS: DULoxetine 20 MG CAP PO SCH (09:46)
[2023-09-05] MEDS: Senokot S 8.6-50 MG TAB PO SCH (09:47)
[2023-09-05] MEDS: Bisacodyl 5 MG TAB PO SCH (09:47)
[2023-09-05] MEDS: Multivitamin W/ Minerals 1 TAB PO SCH (09:48)
[2023-09-05] MEDS: Loratadine 10 MG TAB PO SCH (09:48)
[2023-09-05] MEDS: Polyethylene Glycol 3350 17 GM Packet PO SCH (09:49)
[2023-09-05] MEDS: Potassium Chloride 20 MEQ TAB PO SCH (09:49)
[2023-09-05] MEDS: traMADol HCl 50 MG TAB PO PRN (09:55)
[2023-09-05] MEDS: Lidocaine 4% Topical Sol 50 ML BOT TOP SCH (09:55)
[2023-09-05 10:51] VITALS: BMI 20.2
[2023-09-05] MEDS: Vancomycin (BATCH) 1.25 GM in Premix 1 BAG IVPB SCH (17:53)
[2023-09-05] MEDS: Potassium Bicarbonate/Cit Ac 20 MEQ TAB PO SCH (17:54)
[2023-09-05] MEDS: Cefepime 2 GM in Sodium Chloride 0.9% 100 ML IVPB SCH (20:31)
[2023-09-06] MEDS: Acetaminophen 325 MG TAB PO PRN (03:52)
[2023-09-06] MEDS: Acetaminophen 650 MG Suppository PR PRN (04:02)
[2023-09-06 04:26] LABS: Vancomycin, Random 15.1 ug/mL (See Comment)
[2023-09-06] MEDS: Multivit, Therapeutic 1 TAB PO SCH (08:22)
[2023-09-06] MEDS: Zinc Sulfate 220 MG CAP PO SCH (08:22)
[2023-09-06] MEDS: Ascorbic Acid 500 mg Chewable Tablet PO SCH (08:22)
[2023-09-06 08:37] LABS: #Basophils 0.04 10x3/uL (0.0-0.2); %Basophils 0.3 % (0.0-1.0); %Eosinophils 0.6 % (0.0-10.0); %Lymphocytes 11.9 % (21.0-51.0); %Monocytes 4.5 % (0.0-10.0); %Neutrophils 80.8 % (42.0-75.0); Hematocrit 31.1 % (42.0-52.0); Hemoglobin 10.1 g/dL (14.0-18.0); Mean Corpuscular HGB CONC 32.5 g/dL (32.0-36.0); Mean Corpuscular Hemoglobin 28.2 pg (27.0-31.0); Mean Corpuscular Volume 86.9 fL (78.0-98.0); Mean Platelet Volume 10.4 fL (7.4-10.4); Platelet Count 135 10x3/uL (130-400); RBC Distribution Width 16.7 % (11.5-14.5); Red Blood Cell (RBC) Count 3.58 mill/uL (4.70-6.10)
[2023-09-06 09:02] LABS: Anion Gap 11 mmol/L (10-20); BUN (Urea Nitrogen) 9 mg/dL (8.4-25.7); Calc. Creatinine Clearance 105 mL/min (70-130); Calcium 8.5 mg/dL (7.8-10.44); Carbon Dioxide 24 mmol/L (23-31); Chloride 110 mmol/L (98-107); Estimated GFR 102; Glucose 172 mg/dL (83-110); Potassium 4.2 mmol/L (3.5-5.1); Sodium 141 mmol/L (136-145)
[2023-09-07 04:23] LABS: #Basophils 0.03 10x3/uL (0.0-0.2); %Basophils 0.2 % (0.0-1.0); %Eosinophils 1.3 % (0.0-10.0); %Lymphocytes 13.3 % (21.0-51.0); %Monocytes 5.2 % (0.0-10.0); %Neutrophils 77.6 % (42.0-75.0); Hematocrit 30.8 % (42.0-52.0); Hemoglobin 9.9 g/dL (14.0-18.0); Mean Corpuscular HGB CONC 32.1 g/dL (32.0-36.0); Mean Corpuscular Hemoglobin 28.3 pg (27.0-31.0); Mean Platelet Volume 10.1 fL (7.4-10.4); Platelet Count 121 10x3/uL (130-400); RBC Distribution Width 16.7 % (11.5-14.5)
[2023-09-07 04:46] LABS: Anion Gap 11 mmol/L (10-20); BUN (Urea Nitrogen) 6 mg/dL (8.4-25.7); Calc. Creatinine Clearance 123 mL/min (70-130); Calcium 7.9 mg/dL (7.8-10.44); Carbon Dioxide 21 mmol/L (23-31); Chloride 103 mmol/L (98-107); Estimated GFR 107; Glucose 164 mg/dL (83-110); Potassium 4.4 mmol/L (3.5-5.1); Sodium 131 mmol/L (136-145)
[2023-09-07] MEDS: Sodium Chloride 0.9% 1,000 ML IV SCH (12:59)
[2023-09-07] MEDS: Sodium Ferric Gluconate 250 MG in Sodium Chloride 0.9% 250 ML 250 ML IVPB SCH (16:26)
[2023-09-08 06:03] LABS: #Basophils 0.04 10x3/uL (0.0-0.2); %Basophils 0.3 % (0.0-1.0); %Eosinophils 1.9 % (0.0-10.0); %Lymphocytes 13.6 % (21.0-51.0); %Monocytes 7.3 % (0.0-10.0); %Neutrophils 73.9 % (42.0-75.0); Hematocrit 32.5 % (42.0-52.0); Hemoglobin 10.5 g/dL (14.0-18.0); Mean Corpuscular HGB CONC 32.3 g/dL (32.0-36.0); Mean Corpuscular Hemoglobin 28.1 pg (27.0-31.0); Mean Corpuscular Volume 86.9 fL (78.0-98.0); Mean Platelet Volume 11.5 fL (7.4-10.4); Platelet Count 128 10x3/uL (130-400); RBC Distribution Width 16.6 % (11.5-14.5); Red Blood Cell (RBC) Count 3.74 mill/uL (4.70-6.10)
[2023-09-08 06:05] LABS: Vancomycin, Random 20.1 ug/mL (See Comment)
[2023-09-08 06:12] LABS: Anion Gap 15 mmol/L (10-20); BUN (Urea Nitrogen) 8 mg/dL (8.4-25.7); Calc. Creatinine Clearance 120 mL/min (70-130); Carbon Dioxide 19 mmol/L (23-31); Chloride 104 mmol/L (98-107); Estimated GFR 107; Glucose 116 mg/dL (83-110); Potassium 4.4 mmol/L (3.5-5.1); Sodium 134 mmol/L (136-145)
[2023-09-08] MEDS: cefTRIAXone\\ROCEPHIN 2 GM in Sodium Chloride 0.9% 100 ML IVPB SCH (16:03)
[2023-09-08] MEDS: Vancomycin (BATCH) 1.25 GM in Premix 1 BAG IVPB SCH (20:24)
[2023-09-09] MEDS ORDERED: Ketamine In 0.9 % NaCl 50 MG/5 ML SYRINGE ONE (08:00)
[2023-09-09] MEDS ORDERED: PROPOFOL 200 MG/20 ML VIAL ONE (08:08)
[2023-09-09 11:21] LABS: #Basophils 0.06 10x3/uL (0.0-0.2); %Basophils 0.5 % (0.0-1.0); %Eosinophils 3.2 % (0.0-10.0); %Lymphocytes 13.4 % (21.0-51.0); %Monocytes 7.6 % (0.0-10.0); %Neutrophils 71.1 % (42.0-75.0); Hematocrit 32.7 % (42.0-52.0); Hemoglobin 10.5 g/dL (14.0-18.0); Mean Corpuscular HGB CONC 32.1 g/dL (32.0-36.0); Mean Corpuscular Hemoglobin 27.6 pg (27.0-31.0); Mean Corpuscular Volume 86.1 fL (78.0-98.0); Mean Platelet Volume 10.8 fL (7.4-10.4); Platelet Count 199 10x3/uL (130-400)
[2023-09-09 11:41] LABS: Anion Gap 12 mmol/L (10-20); BUN (Urea Nitrogen) 5 mg/dL (8.4-25.7); Calc. Creatinine Clearance 123 mL/min (70-130); Carbon Dioxide 23 mmol/L (23-31); Chloride 103 mmol/L (98-107); Estimated GFR 107; Glucose 110 mg/dL (83-110); Potassium 4.4 mmol/L (3.5-5.1); Sodium 134 mmol/L (136-145)
[2023-09-09] MEDS: Enoxaparin 40 MG (0.4 mL) SYRINGE SC SCH (13:11)
[2023-09-10 04:55] LABS: #Basophils Less than 0.03 10x3/uL (0.0-0.2); %Basophils 0.2 % (0.0-1.0); %Eosinophils 2.9 % (0.0-10.0); %Lymphocytes 18.6 % (21.0-51.0); %Neutrophils 65.5 % (42.0-75.0); Hematocrit 29.4 % (42.0-52.0); Hemoglobin 9.5 g/dL (14.0-18.0); Mean Corpuscular HGB CONC 32.3 g/dL (32.0-36.0); Mean Corpuscular Hemoglobin 28.2 pg (27.0-31.0); Mean Corpuscular Volume 87.2 fL (78.0-98.0); Mean Platelet Volume 10.6 fL (7.4-10.4); Platelet Count 247 10x3/uL (130-400); RBC Distribution Width 16.8 % (11.5-14.5); Red Blood Cell (RBC) Count 3.37 mill/uL (4.70-6.10)
[2023-09-10 05:16] LABS: Anion Gap 12 mmol/L (10-20); BUN (Urea Nitrogen) 5 mg/dL (8.4-25.7); Calc. Creatinine Clearance 115 mL/min (70-130); Calcium 8.2 mg/dL (7.8-10.44); Carbon Dioxide 25 mmol/L (23-31); Chloride 102 mmol/L (98-107); Estimated GFR 105; Glucose 123 mg/dL (83-110); Potassium 4.6 mmol/L (3.5-5.1); Sodium 134 mmol/L (136-145)
[2023-09-10] MEDS: Enoxaparin 40 MG (0.4 mL) SYRINGE SC SCH (10:28)
[2023-09-11 05:27] LABS: Hematocrit 29.8 % (42.0-52.0); Hemoglobin 9.9 g/dL (14.0-18.0); Mean Corpuscular HGB CONC 33.2 g/dL (32.0-36.0); Mean Corpuscular Hemoglobin 27.9 pg (27.0-31.0); Mean Corpuscular Volume 83.9 fL (78.0-98.0); Mean Platelet Volume 10.2 fL (7.4-10.4); Platelet Count 298 10x3/uL (130-400); RBC Distribution Width 16.9 % (11.5-14.5); Red Blood Cell (RBC) Count 3.55 mill/uL (4.70-6.10)
[2023-09-11 05:33] LABS: Anion Gap 11 mmol/L (10-20); BUN (Urea Nitrogen) 4 mg/dL (8.4-25.7); Calc. Creatinine Clearance 137 mL/min (70-130); Calcium 8.2 mg/dL (7.8-10.44); Carbon Dioxide 22 mmol/L (23-31); Chloride 100 mmol/L (98-107); Estimated GFR 111; Glucose 97 mg/dL (83-110); Potassium 3.6 mmol/L (3.5-5.1); Sodium 129 mmol/L (136-145)
[2023-09-11 05:50] LABS: Anisocytosis SLIGHT = 6-15 cells HPF (0-5); Band 21 % (5-11); Eosinophils 2 % (0-10); Hypochromia SLIGHT = 6-15 cells HPF (0-5); Lymphocytes 8 % (21-51); Monocytes 9 % (0-10); Myelocyte 2 % (0-0); Neutrophil 58 % (42-75); Platelet Adequacy Comment Platelets Normal; Polychromasia SLIGHT = 2-3 cells HPF (0-2)
[2023-09-11] MEDS: Acetaminophen/Codeine 30-300mg Tablet PO PRN (10:08)
[2023-09-11] MEDS: Sodium Chloride 0.9% 500 ML IV SCH (12:25)
[2023-09-12 04:54] LABS: #Basophils 0.07 10x3/uL (0.0-0.2); %Basophils 0.6 % (0.0-1.0); %Eosinophils 2.5 % (0.0-10.0); %Lymphocytes 15.2 % (21.0-51.0); %Monocytes 8.2 % (0.0-10.0); %Neutrophils 69.5 % (42.0-75.0); Hematocrit 29.4 % (42.0-52.0); Hemoglobin 9.7 g/dL (14.0-18.0); Mean Corpuscular Volume 84.7 fL (78.0-98.0); Mean Platelet Volume 9.3 fL (7.4-10.4); Platelet Count 337 10x3/uL (130-400); RBC Distribution Width 17.2 % (11.5-14.5); Red Blood Cell (RBC) Count 3.47 mill/uL (4.70-6.10)
[2023-09-12 05:11] LABS: Anion Gap 9 mmol/L (10-20); BUN (Urea Nitrogen) 4 mg/dL (8.4-25.7); Calc. Creatinine Clearance 140 mL/min (70-130); Calcium 8.2 mg/dL (7.8-10.44); Carbon Dioxide 24 mmol/L (23-31); Chloride 102 mmol/L (98-107); Estimated GFR 112; Glucose 81 mg/dL (83-110); Potassium 3.7 mmol/L (3.5-5.1); Sodium 131 mmol/L (136-145)
[2023-09-12] MEDS ORDERED: Sodium Bicarbonate 2.5 MEQ/5 ML SDV ONE (12:43)
[2023-09-12] MEDS ORDERED: Lidocaine 1% PF 5 ML VIAL ONE (12:43)
[2023-09-12] MEDS: Lorazepam 2 MG/ML VIAL ONE (13:28)
[2023-09-12] MEDS ORDERED: Iopamidol 30 ML ONE (13:51)
[2023-09-13] MEDS: Ketorolac Tromethamine 30 MG (1 mL) VIAL IVP SCH (00:04)
[2023-09-13 04:20] LABS: #Basophils 0.07 10x3/uL (0.0-0.2); %Basophils 0.6 % (0.0-1.0); %Eosinophils 2.8 % (0.0-10.0); %Lymphocytes 18.5 % (21.0-51.0); %Monocytes 9.2 % (0.0-10.0); %Neutrophils 65.6 % (42.0-75.0); Hematocrit 29.4 % (42.0-52.0); Hemoglobin 9.6 g/dL (14.0-18.0); Mean Corpuscular HGB CONC 32.7 g/dL (32.0-36.0); Mean Corpuscular Volume 85.7 fL (78.0-98.0); Mean Platelet Volume 9.3 fL (7.4-10.4); Platelet Count 362 10x3/uL (130-400); RBC Distribution Width 17.3 % (11.5-14.5); Red Blood Cell (RBC) Count 3.43 mill/uL (4.70-6.10)
[2023-09-13 04:31] LABS: Vancomycin, Random 20.3 ug/mL (See Comment)
[2023-09-13 04:33] LABS: Anion Gap 12 mmol/L (10-20); BUN (Urea Nitrogen) 7 mg/dL (8.4-25.7); Calc. Creatinine Clearance 94 mL/min (70-130); Calcium 8.2 mg/dL (7.8-10.44); Carbon Dioxide 24 mmol/L (23-31); Chloride 99 mmol/L (98-107); Estimated GFR 99; Glucose 140 mg/dL (83-110); Potassium 4.1 mmol/L (3.5-5.1); Sodium 131 mmol/L (136-145)
[2023-09-13] MEDS: Vancomycin 1 GM in Premix 1 BAG IVPB SCH (20:08)
[2023-09-14 04:41] LABS: #Basophils 0.03 10x3/uL (0.0-0.2); %Basophils 0.3 % (0.0-1.0); %Eosinophils 1.7 % (0.0-10.0); %Lymphocytes 20.1 % (21.0-51.0); %Monocytes 8.3 % (0.0-10.0); %Neutrophils 66.9 % (42.0-75.0); Hematocrit 28.5 % (42.0-52.0); Hemoglobin 9.3 g/dL (14.0-18.0); Mean Corpuscular HGB CONC 32.6 g/dL (32.0-36.0); Mean Corpuscular Hemoglobin 28.4 pg (27.0-31.0); Mean Corpuscular Volume 86.9 fL (78.0-98.0); Mean Platelet Volume 9.2 fL (7.4-10.4); Platelet Count 406 10x3/uL (130-400); RBC Distribution Width 17.2 % (11.5-14.5); Red Blood Cell (RBC) Count 3.28 mill/uL (4.70-6.10)
[2023-09-14 04:57] LABS: Anion Gap 12 mmol/L (10-20); BUN (Urea Nitrogen) 10 mg/dL (8.4-25.7); Calc. Creatinine Clearance 103 mL/min (70-130); Carbon Dioxide 26 mmol/L (23-31); Chloride 100 mmol/L (98-107); Estimated GFR 102; Glucose 70 mg/dL (83-110); Potassium 4.4 mmol/L (3.5-5.1); Sodium 134 mmol/L (136-145)
[2023-09-14 05:02] LABS: Vancomycin, Random 24.8 ug/mL (See Comment)
[2023-09-14 17:13] VITALS: BP 112/66; TEMP 98.2
== END 2023-09-14 17:30 | DRG 871 ==
LOC: ERS 18:00 → SURG B 21:27 → OBSVTOIN 09-04 06:19 → 2SE 09-04 12:43 → 2NO 09-06 23:09
PROVIDERS: ADMIT Student in an Organized Health Care Education/Training Program; ATTEND Internal Medicine
PROC: 30233J1 Transfusion of Nonautologous Serum Albumin into Peripheral Vein, Percutaneous Approach (ICD-10-PCS; 2023-09-03)
PROC: B245ZZ4 Ultrasonography of Left Heart, Transesophageal (ICD-10-PCS; 2023-09-09)
PROC: 02HV33Z Insertion of Infusion Device into Superior Vena Cava, Percutaneous Approach (ICD-10-PCS; principal; 2023-09-12)
PROC: B5181ZA Fluoroscopy of Superior Vena Cava using Low Osmolar Contrast, Guidance (ICD-10-PCS; 2023-09-12)
PROC: 3E04329 Introduction of Other Anti-infective into Central Vein, Percutaneous Approach (ICD-10-PCS; 2023-09-12)
PROC: B548ZZA Ultrasonography of Superior Vena Cava, Guidance (ICD-10-PCS; 2023-09-12)
DX: A41.02 Sepsis due to Methicillin resistant Staphylococcus aureus (principal); G82.52 Quadriplegia, C1-C4 incomplete; L89.153 Pressure ulcer of sacral region, stage 3; I50.32 Chronic diastolic (congestive) heart failure; E87.1 Hypo-osmolality and hyponatremia; E44.0 Moderate protein-calorie malnutrition; N10 Acute pyelonephritis; E87.0 Hyperosmolality and hypernatremia; A41.59 Other Gram-negative sepsis; E88.09 Other disorders of plasma-protein metabolism, not elsewhere classified; I08.1 Rheumatic disorders of both mitral and tricuspid valves; F32.A Depression, unspecified; N40.1 Benign prostatic hyperplasia with lower urinary tract symptoms; I70.0 Atherosclerosis of aorta; E11.9 Type 2 diabetes mellitus without complications; I11.0 Hypertensive heart disease with heart failure; I48.91 Unspecified atrial fibrillation; R53.81 Other malaise; H40.9 Unspecified glaucoma; Z96.642 Presence of left artificial hip joint; Z88.0 Allergy status to penicillin; Z88.8 Allergy status to other drugs, medicaments and biological substances; Z79.4 Long term (current) use of insulin; Z79.899 Other long term (current) drug therapy; Z98.890 Other specified postprocedural states; Z68.20 Body mass index [BMI] 20.0-20.9, adult; Z98.1 Arthrodesis status
CPT/HCPCS: 36415; 36416; 36569; 70487; 72141; 72146; 72148; 74177; 76937; 77001; 80048; 80053; 80202; 81001; 82010; 82565; 83605; 83735; 84145; 84443; 85025; 86141; 87040; 87077; 87086; 87149; 87186; 93005; 93010; 93306; 93312; 96365; 96374; 96375; 97139; G0378; J0692; J0696; J1650; J1815; J1885; J1956; J2405; J2704; J2916; J3370; J3370-JW; J3411; J3475; J3480; J3490; J7030; J7050; J7070; J7120; P9047; Q9967; S0028

== ENCOUNTER 2023-09-20 03:11 | Observation (INO) | payer MEDICARE, BC ==
[2023-09-20 04:43] LABS: #Basophils 0.07 10x3/uL (0.0-0.2); %Basophils 1.3 % (0.0-1.0); %Eosinophils 3.1 % (0.0-10.0); %Lymphocytes 23.9 % (21.0-51.0); %Monocytes 9.2 % (0.0-10.0); %Neutrophils 61.4 % (42.0-75.0); Hematocrit 27.8 % (42.0-52.0); Mean Corpuscular HGB CONC 32.4 g/dL (32.0-36.0); Mean Corpuscular Hemoglobin 27.4 pg (27.0-31.0); Mean Corpuscular Volume 84.5 fL (78.0-98.0); Platelet Count 277 10x3/uL (130-400); RBC Distribution Width 16.9 % (11.5-14.5); Red Blood Cell (RBC) Count 3.29 mill/uL (4.70-6.10)
[2023-09-20 04:51] LABS: PTT 52.8 sec (22.9-36.1)
[2023-09-20 04:52] LABS: INR-International Normal Ratio 2.6; Prothrombin Time 28.1 sec (12.0-14.7)
[2023-09-20 05:00] LABS: Actual Bicarbonate (HCO3v) 26.6 mEq/L (22-28); Base Excess 2.4 mEq/L (-2.0 to +3.0); Calcium, Ionized (venous) 1.17 mmol/L (1.16-1.32); Chloride (VBG) 96 mmol/L (98-106); Hematocrit-VBG 29 % (42.0-52.0); Potassium (VBG) 3.68 mmol/L (3.70-5.30); Sodium 132 mmol/L (133-146); pH (venous) 7.442 (7.32-7.43)
[2023-09-20 05:23] LABS: ALT (SGPT) 17 U/L (8-55); AST (SGOT) 19 U/L (5-34); Alkaline Phosphatase 62 U/L (40-110); Anion Gap 15 mmol/L (10-20); BUN (Urea Nitrogen) 25 mg/dL (8.4-25.7); Bilirubin, Total 0.3 mg/dL (0.2-1.2); Calc. Creatinine Clearance 0 mL/min (70-130); Calcium 8.8 mg/dL (7.8-10.44); Carbon Dioxide 25 mmol/L (23-31); Chloride 97 mmol/L (98-107); Estimated GFR 102; Globulin 3.4 g/dL (2.4-3.5); Glucose 82 mg/dL (83-110); Magnesium 1.7 mg/dL (1.6-2.6); Potassium 3.8 mmol/L (3.5-5.1); Protein, Total 5.4 g/dL (5.8-8.1); Sodium 133 mmol/L (136-145)
[2023-09-20 05:32] LABS: Troponin I Less than 0.010 ng/mL (< 0.028)
[2023-09-20] MEDS ORDERED: Ondansetron PF 4 MG/2 ML Vial IVP PRN (06:45)
[2023-09-20] MEDS ORDERED: Ondansetron ODT 4 MG TAB SL PRN (06:45)
[2023-09-20] MEDS ORDERED: Acetaminophen 325 MG TAB PO PRN (06:45)
[2023-09-20] MEDS ORDERED: Morphine 2 MG/ML VIAL SLOW IVP PRN (08:21)
[2023-09-20] MEDS ORDERED: Electrolyte Replacement Protocol FS PRN (08:45)
[2023-09-20] MEDS ORDERED: Famotidine/PF 20 mg/2ml Vial ONE (09:18)
[2023-09-20] MEDS ORDERED: Furosemide 20 MG (2 mL) VIAL ONE (09:18)
[2023-09-20] MEDS ORDERED: Vancomycin 1 GM/200 ML (FROZEN) BAG ONE (09:19)
[2023-09-20] MEDS ORDERED: Famotidine 20 MG TAB ONE (09:21)
[2023-09-20] MEDS ORDERED: Ipratropium/Albuterol 3 ML NEB NEB PRN (09:27)
[2023-09-20] MEDS: Vancomycin 1 GM in Premix 1 BAG IVPB SCH (09:29)
[2023-09-20] MEDS: Furosemide 20 MG (2 mL) VIAL SLOW IVP SCH ×2 (09:29→14:22)
[2023-09-20] MEDS: Famotidine 20 MG TAB PO SCH (09:30)
[2023-09-20] MEDS ORDERED: Iopamidol 370 76% 100 ML VIAL ONE (10:47)
[2023-09-20 12:14] VITALS: BMI 20.7
[2023-09-20] MEDS ORDERED: VANCOMYCIN IVPB PRN (12:18)
[2023-09-20] MEDS: Magnesium 2 GM/50 ML(in water) 2 GM in Premix 1 BAG IVPB SCH ×2 (12:52→14:23)
[2023-09-20] MEDS ORDERED: Gabapentin 300 MG CAP PO PRN (13:12)
[2023-09-20] MEDS: Ipratropium/Albuterol 3 ML NEB NEB SCH (13:23)
[2023-09-20] MEDS ORDERED: cefTRIAXone (ROCEPHIN) 2 GM VIAL IVPB SCH (15:00)
[2023-09-20 15:07] LABS: Influenza A by NAA Not Detected (NotDetected); Influenza B by NAA Not Detected (NotDetected); SARS-CoV-2 NAA Rapid Test Not Detected (NotDetected)
[2023-09-20] MEDS: cefTRIAXone\\ROCEPHIN 2 GM in Sodium Chloride 0.9% 100 ML IVPB SCH (16:02)
[2023-09-20] MEDS ORDERED: Vancomycin 1 GM in Premix 1 BAG IVPB SCH (20:00)
[2023-09-20] MEDS ORDERED: Vancomycin 1 GM/200 ML (FROZEN) BAG IVPB SCH (20:00)
[2023-09-20] MEDS: Electrolyte Replacement Protocol 1 EACH FS ONE (22:49)
[2023-09-20] MEDS: Atorvastatin Calcium 10 MG TAB PO SCH (22:57)
[2023-09-20] MEDS: Apixaban 5 MG TAB PO SCH (22:57)
[2023-09-20] MEDS: Brimonidine Tartrate 0.2% Ophth Soln 5 ml Bottle EA EYE SCH (22:59)
[2023-09-20] MEDS: Timolol 0.5% Ophth Soln 5 ml Bottle EA EYE SCH (23:50)
[2023-09-21] MEDS: Bisacodyl 10 MG SUPP PR SCH (00:51)
[2023-09-21] MEDS: guaiFENesin ER 600 MG TAB PO SCH (03:57)
[2023-09-21 03:59] LABS: #Basophils 0.05 10x3/uL (0.0-0.2); %Basophils 0.9 % (0.0-1.0); %Eosinophils 1.9 % (0.0-10.0); %Lymphocytes 24.6 % (21.0-51.0); %Monocytes 11.2 % (0.0-10.0); %Neutrophils 60.5 % (42.0-75.0); Hematocrit 31.3 % (42.0-52.0); Hemoglobin 10.4 g/dL (14.0-18.0); Mean Corpuscular HGB CONC 33.2 g/dL (32.0-36.0); Mean Corpuscular Hemoglobin 27.4 pg (27.0-31.0); Mean Corpuscular Volume 82.6 fL (78.0-98.0); Mean Platelet Volume 9.2 fL (7.4-10.4); Platelet Count 330 10x3/uL (130-400); Red Blood Cell (RBC) Count 3.79 mill/uL (4.70-6.10)
[2023-09-21 04:33] LABS: Vancomycin, Random 18.6 ug/mL (See Comment)
[2023-09-21 04:37] LABS: Anion Gap 15 mmol/L (10-20); BUN (Urea Nitrogen) 17 mg/dL (8.4-25.7); Calc. Creatinine Clearance 85 mL/min (70-130); Calcium 8.5 mg/dL (7.8-10.44); Carbon Dioxide 26 mmol/L (23-31); Chloride 98 mmol/L (98-107); Estimated GFR 95; Glucose 213 mg/dL (83-110); Potassium 4.1 mmol/L (3.5-5.1); Sodium 135 mmol/L (136-145)
[2023-09-21] MEDS: Timolol 0.5% Ophth Soln 5 ml Bottle EA EYE SCH (09:53)
[2023-09-21] MEDS: Vancomycin (BATCH) 1.5 GM in Premix 1 BAG IVPB SCH (09:53)
[2023-09-21] MEDS: Empagliflozin 25 MG TAB PO SCH (09:54)
[2023-09-21] MEDS: DULoxetine 20 MG CAP PO SCH (09:54)
[2023-09-21] MEDS: Loratadine 10 MG TAB PO SCH (09:54)
[2023-09-21] MEDS: Bisacodyl 5 MG TAB PO SCH (09:54)
[2023-09-21] MEDS: Tamsulosin HCl 0.4 MG CAP PO SCH (09:54)
[2023-09-21 12:35] VITALS: BMI 20.7
[2023-09-21] MEDS: Midodrine HCl 5 MG TAB PO SCH (22:28)
[2023-09-22 04:27] VITALS: TEMP 97.9
[2023-09-22] MEDS: Ipratropium/Albuterol 3 ML NEB NEB SCH (07:08)
[2023-09-22] MEDS ORDERED: Vancomycin HCl 750 MG in Sodium Chloride 0.9% 250 ML 250 ML IVPB SCH (09:00)
[2023-09-22] MEDS: Flecainide 50 MG TAB PO SCH (09:47)
[2023-09-22] MEDS: Midodrine HCl 5 MG TAB PO SCH (09:50)
[2023-09-22] MEDS: Vancomycin (BATCH) 1.5 GM in Premix 1 BAG IVPB SCH (09:51)
[2023-09-22 11:08] VITALS: BP 118/56
== END 2023-09-22 11:20 ==
LOC: ERS 03:11 → ERHOLD 06:30 → 2NO 11:46
PROVIDERS: ADMIT Student in an Organized Health Care Education/Training Program; ATTEND Family Medicine
DX: J90 Pleural effusion, not elsewhere classified (principal); I11.0 Hypertensive heart disease with heart failure; I50.33 Acute on chronic diastolic (congestive) heart failure; E11.9 Type 2 diabetes mellitus without complications; I48.91 Unspecified atrial fibrillation; Z79.01 Long term (current) use of anticoagulants; Z79.84 Long term (current) use of oral hypoglycemic drugs; Z79.899 Other long term (current) drug therapy; Z79.4 Long term (current) use of insulin; Z88.8 Allergy status to other drugs, medicaments and biological substances; Z88.0 Allergy status to penicillin; Z88.7 Allergy status to serum and vaccine
CPT/HCPCS: 0240U; 71045; 71046; 71275; 80048; 80053; 80202; 82805; 82962 ×3; 83605; 83735; 83880 ×2; 84145; 84484; 85025 ×2; 85379; 85610; 85730; 86141; 87040; 93005; 94640 ×4; 96374; 96375 ×2; 96376 ×3; 97110; 97139 ×3; 99285; G0378 ×4; J0696 ×2; J1940 ×2; J3370 ×3; J3475; J3490 ×2; Q9967; 36415; 36416; J7620; S0028

== ENCOUNTER 2023-12-06 11:50 | Emergency (ER) | payer MEDICARE, BC ==
[2023-12-06 14:13] LABS: #Basophils 0.08 10x3/uL (0.0-0.2); %Basophils 0.7 % (0.0-1.0); %Eosinophils 1.8 % (0.0-10.0); %Lymphocytes 23.6 % (21.0-51.0); %Monocytes 11.1 % (0.0-10.0); %Neutrophils 61.7 % (42.0-75.0); Hematocrit 36.5 % (42.0-52.0); Hemoglobin 11.5 g/dL (14.0-18.0); Mean Corpuscular HGB CONC 31.5 g/dL (32.0-36.0); Mean Corpuscular Hemoglobin 27.9 pg (27.0-31.0); Mean Corpuscular Volume 88.6 fL (78.0-98.0); Platelet Count 346 10x3/uL (130-400); Red Blood Cell (RBC) Count 4.12 mill/uL (4.70-6.10)
[2023-12-06 14:26] LABS: ALT (SGPT) 9 U/L (8-55); AST (SGOT) 11 U/L (5-34); Albumin 2.6 g/dL (3.4-4.8); Alkaline Phosphatase 69 U/L (40-110); Anion Gap 15 mmol/L (10-20); BUN (Urea Nitrogen) 11 mg/dL (8.4-25.7); Bilirubin, Total 0.2 mg/dL (0.2-1.2); Calc. Creatinine Clearance 0 mL/min (70-130); Carbon Dioxide 20 mmol/L (23-31); Chloride 103 mmol/L (98-107); Estimated GFR 97; Globulin 3.7 g/dL (2.4-3.5); Glucose 157 mg/dL (83-110); Magnesium 1.8 mg/dL (1.6-2.6); Potassium 3.9 mmol/L (3.5-5.1); Protein, Total 6.3 g/dL (5.8-8.1); Sodium 134 mmol/L (136-145)
[2023-12-06 14:31] LABS: Troponin I Less than 0.010 ng/mL (< 0.028)
== END 2023-12-06 17:14 | disposition home or self-care (01) ==
LOC: ERS 11:50
DX: M79.641 Pain in right hand (principal); R00.8 Other abnormalities of heart beat; R79.1 Abnormal coagulation profile; I11.0 Hypertensive heart disease with heart failure; I50.9 Heart failure, unspecified; E11.9 Type 2 diabetes mellitus without complications; E78.00 Pure hypercholesterolemia, unspecified; I48.91 Unspecified atrial fibrillation; Z79.899 Other long term (current) drug therapy; Z79.01 Long term (current) use of anticoagulants
CPT/HCPCS: 36415; 71045; 80053; 83735; 84443; 84484; 85025; 85379; 93005

== ENCOUNTER 2024-01-19 10:06 | Inpatient (IN) | payer MEDICARE, BC ==
[2024-01-19 11:05] LABS: #Basophils 0.09 10x3/uL (0.0-0.2); %Basophils 0.6 % (0.0-1.0); %Lymphocytes 15.5 % (21.0-51.0); %Monocytes 8.5 % (0.0-10.0); %Neutrophils 71.6 % (42.0-75.0); Hematocrit 36.1 % (42.0-52.0); Hemoglobin 11.8 g/dL (14.0-18.0); Mean Corpuscular HGB CONC 32.7 g/dL (32.0-36.0); Mean Corpuscular Hemoglobin 28.6 pg (27.0-31.0); Mean Corpuscular Volume 87.6 fL (78.0-98.0); Mean Platelet Volume 9.6 fL (7.4-10.4); Platelet Count 321 10x3/uL (130-400); RBC Distribution Width 15.1 % (11.5-14.5); Red Blood Cell (RBC) Count 4.12 mill/uL (4.70-6.10)
[2024-01-19] MEDS ORDERED: Iopamidol-370 76% 500 ML MDV (1 ML CHARGE) ONE (11:46)
[2024-01-19 13:30] LABS: ALT (SGPT) 7 U/L (8-55); AST (SGOT) 12 U/L (5-34); Albumin 2.8 g/dL (3.4-4.8); Alkaline Phosphatase 76 U/L (40-110); Anion Gap 14 mmol/L (10-20); BUN (Urea Nitrogen) 12 mg/dL (8.4-25.7); Bilirubin, Total 0.3 mg/dL (0.2-1.2); Calc. Creatinine Clearance 0 mL/min (70-130); Calcium 8.5 mg/dL (7.8-10.44); Carbon Dioxide 22 mmol/L (23-31); Chloride 101 mmol/L (98-107); Estimated GFR 99; Globulin 3.2 g/dL (2.4-3.5); Glucose 204 mg/dL (83-110); Sodium 133 mmol/L (136-145)
[2024-01-19 13:46] LABS: Troponin I Less than 0.010 ng/mL (< 0.028)
[2024-01-19] MEDS ORDERED: HYDROcodone/Acetaminophen 5/325 mg Tablet ONE (14:07)
[2024-01-19 14:26] LABS: INR-International Normal Ratio 1.8; Prothrombin Time 20.8 sec (12.0-14.7)
[2024-01-19] MEDS ORDERED: Dextrose 5% in Water 1,000 ML IV PRN (15:23)
[2024-01-19] MEDS ORDERED: Dextrose 50% Abboject 50 ML SYRINGE SLOW IVP PRN (15:23)
[2024-01-19] MEDS ORDERED: Glucagon 1 MG/ML KIT IM PRN (15:23)
[2024-01-19] MEDS ORDERED: Acetaminophen 500 MG TAB ONE (15:51)
[2024-01-19 15:59] LABS: Troponin I Less than 0.010 ng/mL (< 0.028)
[2024-01-19 16:35] LABS: Bilirubin Negative (Negative); Blood, Urine 1+ (Negative); Clarity Extra Turbid (Clear); Glucose, Urine (Dipstick) Normal (Negative); Ketone, Urine Negative (Negative); Leukocyte 500 Leu/uL (Negative); Nitrite 2+ (Negative); Protein, Urine (Dipstick) 100 mg/dL (Neg-Trace); Urobilinogen Normal mg/dL (Less than 2)
[2024-01-19 16:52] LABS: Specific Gravity, Urine Greater than 1.060 (1.002-1.036)
[2024-01-19 17:01] LABS: Bacteria/HPF 1+ HPF (None Seen); RBC/HPF Greater than 50 HPF (0-3); Squamous Epithelial None Seen HPF (0-3); WBC/HPF Greater than 50 HPF (0-3); Yeast-Budding 1+ HPF (None Seen)
[2024-01-19 18:11] LABS: Troponin I Less than 0.010 ng/mL (< 0.028)
[2024-01-19 19:47] VITALS: BMI 22.3
[2024-01-19] MEDS: Atorvastatin Calcium 10 MG TAB PO SCH (20:33)
[2024-01-19] MEDS: Apixaban 5 MG TAB PO SCH (20:33)
[2024-01-19] MEDS: Famotidine 20 MG TAB PO SCH (20:33)
[2024-01-19] MEDS: Flecainide 50 MG TAB PO SCH (20:33)
[2024-01-19] MEDS: Acetaminophen 500 MG TAB PO PRN (20:37)
[2024-01-19] MEDS: Cefepime 2 GM in Sodium Chloride 0.9% 100 ML IVPB SCH (20:39)
[2024-01-19] MEDS: Vancomycin (BATCH) 1.75 GM in Premix 1 BAG IVPB SCH (21:33)
[2024-01-20] MEDS: Brimonidine Tartrate 0.2% Ophth Soln 5 ml Bottle EA EYE SCH (00:56)
[2024-01-20] MEDS: Latanoprost 0.005% Ophth Soln 2.5 ml Bottle EA EYE SCH (00:57)
[2024-01-20 05:34] LABS: #Basophils 0.08 10x3/uL (0.0-0.2); %Basophils 0.8 % (0.0-1.0); %Eosinophils 4.1 % (0.0-10.0); %Lymphocytes 7.7 % (21.0-51.0); %Monocytes 7.9 % (0.0-10.0); %Neutrophils 78.7 % (42.0-75.0); Hematocrit 36.8 % (42.0-52.0); Hemoglobin 11.8 g/dL (14.0-18.0); Mean Corpuscular HGB CONC 32.1 g/dL (32.0-36.0); Mean Corpuscular Hemoglobin 28.4 pg (27.0-31.0); Mean Corpuscular Volume 88.5 fL (78.0-98.0); Mean Platelet Volume 10.2 fL (7.4-10.4); Platelet Count 301 10x3/uL (130-400); RBC Distribution Width 15.3 % (11.5-14.5); Red Blood Cell (RBC) Count 4.16 mill/uL (4.70-6.10)
[2024-01-20 05:52] LABS: Anion Gap 14 mmol/L (10-20); BUN (Urea Nitrogen) 12 mg/dL (8.4-25.7); Calc. Creatinine Clearance 106 mL/min (70-130); Calcium 8.3 mg/dL (7.8-10.44); Carbon Dioxide 21 mmol/L (23-31); Cardiac Risk 5.2 (Less than 4.5); Chloride 102 mmol/L (98-107); Cholesterol 157 mg/dl (< 200 Desired); Estimated GFR 99; Glucose 150 mg/dL (83-110); HDL Cholesterol 30 mg/dL (>60 Neg Risk); LDL Cholesterol, Calculated 93 mg/dL; Sodium 133 mmol/L (136-145); Triglycerides 169 mg/dL (Less than 150); Vancomycin, Random 25.6 ug/mL (See Comment)
[2024-01-20] MEDS: Aspirin Chewable 81 MG TAB PO SCH (08:19)
[2024-01-20] MEDS: Timolol 0.5% Ophth Soln 5 ml Bottle EA EYE SCH (08:19)
[2024-01-20] MEDS ORDERED: VANCOMYCIN 1.25 GM/250 ML BAG 1.25 GM in Premix 1 BAG IVPB SCH (10:00)
[2024-01-20] MEDS: Vancomycin 1 GM in Premix 1 BAG IVPB SCH (10:35)
[2024-01-20 14:28] VITALS: BMI 22.3
[2024-01-21] MEDS: Acetaminophen 500 MG TAB PO SCH (08:28)
[2024-01-21] MEDS: VANCOMYCIN 1.25 GM/250 ML BAG 1.25 GM in Premix 1 BAG IVPB SCH (08:31)
[2024-01-21] MEDS: Insulin Lispro 100 UNIT/ML 10 ML VIAL SC PRN (13:31)
[2024-01-21] MEDS: traMADol HCl 50 MG TAB PO PRN (23:55)
[2024-01-22 03:51] LABS: Hematocrit 34.1 % (42.0-52.0); Hemoglobin 11.3 g/dL (14.0-18.0); Mean Corpuscular HGB CONC 33.1 g/dL (32.0-36.0); Mean Corpuscular Hemoglobin 28.8 pg (27.0-31.0); Mean Corpuscular Volume 86.8 fL (78.0-98.0); Mean Platelet Volume 10.2 fL (7.4-10.4); Platelet Count 293 10x3/uL (130-400); RBC Distribution Width 15.2 % (11.5-14.5); Red Blood Cell (RBC) Count 3.93 mill/uL (4.70-6.10)
[2024-01-22 04:04] LABS: Vancomycin, Random 27.8 ug/mL (See Comment)
[2024-01-22 04:05] LABS: Anion Gap 14 mmol/L (10-20); BUN (Urea Nitrogen) 12 mg/dL (8.4-25.7); Calc. Creatinine Clearance 117 mL/min (70-130); Calcium 8.2 mg/dL (7.8-10.44); Carbon Dioxide 20 mmol/L (23-31); Chloride 103 mmol/L (98-107); Estimated GFR 102; Glucose 159 mg/dL (83-110); Potassium 4.1 mmol/L (3.5-5.1); Sodium 133 mmol/L (136-145)
[2024-01-23 16:35] VITALS: BP 100/51; TEMP 97.4
== END 2024-01-23 17:00 | disposition home or self-care (01) | DRG 313 ==
LOC: ERS 10:06 → ERHOLD 14:20 → PCU 19:02
PROVIDERS: ADMIT Family Medicine; ATTEND Internal Medicine
DX: R07.89 Other chest pain (principal); A41.4 Sepsis due to anaerobes; G82.50 Quadriplegia, unspecified; L89.154 Pressure ulcer of sacral region, stage 4; I82.412 Acute embolism and thrombosis of left femoral vein; N39.0 Urinary tract infection, site not specified; E87.1 Hypo-osmolality and hyponatremia; I50.32 Chronic diastolic (congestive) heart failure; M79.601 Pain in right arm; Z66 Do not resuscitate; G89.29 Other chronic pain; I48.91 Unspecified atrial fibrillation; B96.4 Proteus (mirabilis) (morganii) as the cause of diseases classified elsewhere; E11.9 Type 2 diabetes mellitus without complications; N40.1 Benign prostatic hyperplasia with lower urinary tract symptoms; Z96.643 Presence of artificial hip joint, bilateral; K21.9 Gastro-esophageal reflux disease without esophagitis; D64.9 Anemia, unspecified; R33.8 Other retention of urine; I11.0 Hypertensive heart disease with heart failure; R94.31 Abnormal electrocardiogram [ECG] [EKG]; H40.9 Unspecified glaucoma; E78.5 Hyperlipidemia, unspecified; Z96.612 Presence of left artificial shoulder joint; Z88.4 Allergy status to anesthetic agent; Z88.0 Allergy status to penicillin; Z88.7 Allergy status to serum and vaccine; Z88.8 Allergy status to other drugs, medicaments and biological substances; Z79.01 Long term (current) use of anticoagulants; Z79.84 Long term (current) use of oral hypoglycemic drugs; Z79.899 Other long term (current) drug therapy; Z86.718 Personal history of other venous thrombosis and embolism
CPT/HCPCS: 36415; 36416; 71045; 71275; 74177; 80048; 80053; 80061; 80202; 81001; 83690; 83880; 84484; 85025; 85027; 85610; 87040; 87077; 87086; 87186; 93005; 93010; 94760; 97139; J0692; J1815; J3370; J3370-JW; Q9967

== ENCOUNTER 2024-02-17 15:39 | Inpatient (IN) | payer MEDICARE, BC ==
[2024-02-17 17:13] LABS: #Basophils 0.12 10x3/uL (0.0-0.2); %Basophils 1.3 % (0.0-1.0); %Eosinophils 7.4 % (0.0-10.0); %Lymphocytes 31.1 % (21.0-51.0); %Monocytes 10.2 % (0.0-10.0); %Neutrophils 49.4 % (42.0-75.0); Hematocrit 34.4 % (42.0-52.0); Hemoglobin 11.3 g/dL (14.0-18.0); Mean Corpuscular HGB CONC 32.8 g/dL (32.0-36.0); Mean Corpuscular Hemoglobin 29.3 pg (27.0-31.0); Mean Corpuscular Volume 89.1 fL (78.0-98.0); Mean Platelet Volume 9.7 fL (7.4-10.4); Platelet Count 285 10x3/uL (130-400); RBC Distribution Width 15.4 % (11.5-14.5); Red Blood Cell (RBC) Count 3.86 mill/uL (4.70-6.10)
[2024-02-17 17:35] LABS: ALT (SGPT) Less than 5 U/L (8-55); AST (SGOT) 11 U/L (5-34); Albumin 2.7 g/dL (3.4-4.8); Alkaline Phosphatase 66 U/L (40-110); Anion Gap 14 mmol/L (10-20); BUN (Urea Nitrogen) 11 mg/dL (8.4-25.7); Bilirubin, Total 0.3 mg/dL (0.2-1.2); Calc. Creatinine Clearance 0 mL/min (70-130); Calcium 8.6 mg/dL (7.8-10.44); Carbon Dioxide 21 mmol/L (23-31); Chloride 104 mmol/L (98-107); Estimated GFR 101; Globulin 3.4 g/dL (2.4-3.5); Glucose 153 mg/dL (83-110); Potassium 4.1 mmol/L (3.5-5.1); Protein, Total 6.1 g/dL (5.8-8.1); Sodium 135 mmol/L (136-145)
[2024-02-17] MEDS ORDERED: Gabapentin 300 MG CAP ONE (18:49)
[2024-02-17 20:28] LABS: Bilirubin Negative (Negative); Blood, Urine 3+ (Negative); CAUTI Indications for Culture Dysuria,urgency,freq; Clarity Extra Turbid (Clear); Glucose, Urine (Dipstick) Normal (Negative); Ketone, Urine Negative (Negative); Leukocyte 500 Leu/uL (Negative); Nitrite 2+ (Negative); Protein, Urine (Dipstick) 70 mg/dL (Neg-Trace); Specific Gravity, Urine 1.015 (1.002-1.036); Squamous Epithelial None Seen HPF (0-3); Urobilinogen Normal mg/dL (Less than 2); WBC/HPF Greater than 50 HPF (0-3)
[2024-02-17 20:29] LABS: Bacteria/HPF 1+ HPF (None Seen)
[2024-02-17 20:31] LABS: Urine Culture Reflex Yes Yes
[2024-02-17] MEDS ORDERED: cefTRIAXone (ROCEPHIN) 2 GM VIAL ONE (21:17)
[2024-02-17] MEDS ORDERED: Sodium Chloride 0.9% 100 ML ONE (21:17)
[2024-02-17] MEDS ORDERED: Atropine Sulfate 1 mg/1 ml Vial IVP PRN (21:48)
[2024-02-18] MEDS ORDERED: Ondansetron ODT 4 MG TAB PO PRN (00:16)
[2024-02-18] MEDS ORDERED: Ondansetron PF 4 MG/2 ML Vial IVP PRN (00:16)
[2024-02-18] MEDS ORDERED: Dextrose 5% in Water 1,000 ML IV PRN (00:29)
[2024-02-18] MEDS ORDERED: Insulin Lispro 100 UNIT/ML 10 ML VIAL SC PRN (00:29)
[2024-02-18] MEDS ORDERED: Glucagon 1 MG/ML KIT IM PRN (00:29)
[2024-02-18] MEDS ORDERED: Dextrose 50% Abboject 50 ML SYRINGE SLOW IVP PRN (00:29)
[2024-02-18] MEDS ORDERED: Apixaban 5 MG TAB ONE ×2 (01:02→08:29)
[2024-02-18] MEDS: Apixaban 5 MG TAB PO SCH ×2 (01:16→08:38)
[2024-02-18 01:20] VITALS: BMI 19.9
[2024-02-18 05:56] LABS: #Basophils 0.11 10x3/uL (0.0-0.2); %Basophils 1.2 % (0.0-1.0); %Eosinophils 6.8 % (0.0-10.0); %Lymphocytes 16.3 % (21.0-51.0); %Monocytes 10.6 % (0.0-10.0); %Neutrophils 64.4 % (42.0-75.0); Hematocrit 41.6 % (42.0-52.0); Hemoglobin 12.8 g/dL (14.0-18.0); Mean Corpuscular HGB CONC 30.8 g/dL (32.0-36.0); Mean Corpuscular Hemoglobin 29.2 pg (27.0-31.0); Mean Corpuscular Volume 94.8 fL (78.0-98.0); Mean Platelet Volume 9.9 fL (7.4-10.4); Platelet Count 272 10x3/uL (130-400); RBC Distribution Width 15.6 % (11.5-14.5); Red Blood Cell (RBC) Count 4.39 mill/uL (4.70-6.10)
[2024-02-18 06:56] LABS: Anion Gap 16 mmol/L (10-20); BUN (Urea Nitrogen) 12 mg/dL (8.4-25.7); Calc. Creatinine Clearance 88 mL/min (70-130); Calcium 8.7 mg/dL (7.8-10.44); Carbon Dioxide 19 mmol/L (23-31); Chloride 105 mmol/L (98-107); Estimated GFR 98; Glucose 199 mg/dL (83-110); Potassium 4.7 mmol/L (3.5-5.1); Sodium 135 mmol/L (136-145)
[2024-02-18] MEDS ORDERED: Gabapentin 300 MG CAP ONE (08:29)
[2024-02-18] MEDS ORDERED: Pantoprazole DR 40 MG TAB ONE ×2 (08:29→08:30)
[2024-02-18] MEDS ORDERED: Tamsulosin HCl 0.4 MG CAP ONE ×2 (08:29→08:50)
[2024-02-18] MEDS ORDERED: traMADol HCl 50 MG TAB ONE (08:33)
[2024-02-18] MEDS: traMADol HCl 50 MG TAB PO PRN (08:39)
[2024-02-18] MEDS: Gabapentin 300 MG CAP PO SCH (08:39)
[2024-02-18] MEDS: Pantoprazole DR 40 MG TAB PO SCH (08:39)
[2024-02-18 11:11] LABS: Magnesium 1.7 mg/dL (1.6-2.6)
[2024-02-18] MEDS: Tamsulosin HCl 0.4 MG CAP PO SCH (11:43)
[2024-02-18] MEDS: glipiZIDE 10 MG TAB PO SCH (11:43)
[2024-02-18] MEDS: Magnesium Sulfate In Water 4 GM in Premix 1 BAG IVPB SCH (15:44)
[2024-02-18] MEDS: Atorvastatin Calcium 10 MG TAB PO SCH (22:50)
[2024-02-18] MEDS: Acetaminophen 325 MG TAB PO PRN (23:14)
[2024-02-19] MEDS: cefTRIAXone\\ROCEPHIN 1 GM in Sodium Chloride 0.9% 100 ML IVPB SCH (00:11)
[2024-02-19 04:41] LABS: #Basophils 0.09 10x3/uL (0.0-0.2); %Basophils 1.1 % (0.0-1.0); %Eosinophils 6.7 % (0.0-10.0); %Lymphocytes 23.1 % (21.0-51.0); %Monocytes 12.9 % (0.0-10.0); %Neutrophils 55.6 % (42.0-75.0); Hematocrit 35.4 % (42.0-52.0); Hemoglobin 11.4 g/dL (14.0-18.0); Mean Corpuscular HGB CONC 32.2 g/dL (32.0-36.0); Mean Corpuscular Volume 90.1 fL (78.0-98.0); Mean Platelet Volume 10.1 fL (7.4-10.4); Platelet Count 291 10x3/uL (130-400); RBC Distribution Width 15.2 % (11.5-14.5); Red Blood Cell (RBC) Count 3.93 mill/uL (4.70-6.10)
[2024-02-19 05:21] LABS: Anion Gap 12 mmol/L (10-20); BUN (Urea Nitrogen) 12 mg/dL (8.4-25.7); Calc. Creatinine Clearance 87 mL/min (70-130); Calcium 8.5 mg/dL (7.8-10.44); Carbon Dioxide 24 mmol/L (23-31); Chloride 101 mmol/L (98-107); Estimated GFR 98; Glucose 156 mg/dL (83-110); Potassium 4.3 mmol/L (3.5-5.1); Sodium 133 mmol/L (136-145)
[2024-02-19] MEDS: Metoprolol Tartrate 25 MG TAB PO SCH ×2 (10:40→20:20)
[2024-02-20 04:19] LABS: %Basophils 1.4 % (0.0-1.0); %Eosinophils 8.3 % (0.0-10.0); %Lymphocytes 23.6 % (21.0-51.0); %Monocytes 11.2 % (0.0-10.0); %Neutrophils 54.8 % (42.0-75.0); Hematocrit 33.7 % (42.0-52.0); Mean Corpuscular HGB CONC 32.6 g/dL (32.0-36.0); Mean Corpuscular Hemoglobin 29.2 pg (27.0-31.0); Mean Corpuscular Volume 89.4 fL (78.0-98.0); Mean Platelet Volume 10.3 fL (7.4-10.4); Platelet Count 284 10x3/uL (130-400); RBC Distribution Width 15.2 % (11.5-14.5); Red Blood Cell (RBC) Count 3.77 mill/uL (4.70-6.10)
[2024-02-20 04:45] LABS: Anion Gap 13 mmol/L (10-20); BUN (Urea Nitrogen) 12 mg/dL (8.4-25.7); Calc. Creatinine Clearance 77 mL/min (70-130); Calcium 8.2 mg/dL (7.8-10.44); Carbon Dioxide 21 mmol/L (23-31); Chloride 103 mmol/L (98-107); Estimated GFR 94; Glucose 242 mg/dL (83-110); Potassium 3.8 mmol/L (3.5-5.1); Sodium 133 mmol/L (136-145)
[2024-02-20] MEDS: Insulin Lispro 100 UNIT/ML 10 ML VIAL SC PRN (06:33)
[2024-02-20] MEDS: Guaifenesin DM 100-10/5 ML UDCUP PO PRN (10:40)
[2024-02-22 04:22] LABS: %Basophils 1.1 % (0.0-1.0); %Eosinophils 7.3 % (0.0-10.0); %Lymphocytes 26.5 % (21.0-51.0); %Monocytes 11.4 % (0.0-10.0); Hematocrit 35.6 % (42.0-52.0); Hemoglobin 11.3 g/dL (14.0-18.0); Mean Corpuscular HGB CONC 31.7 g/dL (32.0-36.0); Mean Corpuscular Hemoglobin 28.9 pg (27.0-31.0); Mean Platelet Volume 10.2 fL (7.4-10.4); Platelet Count 269 10x3/uL (130-400); RBC Distribution Width 15.2 % (11.5-14.5); Red Blood Cell (RBC) Count 3.91 mill/uL (4.70-6.10)
[2024-02-22 07:46] LABS: ALT (SGPT) 6 U/L (8-55); AST (SGOT) 13 U/L (5-34); Albumin 2.6 g/dL (3.4-4.8); Alkaline Phosphatase 65 U/L (40-110); Anion Gap 14 mmol/L (10-20); BUN (Urea Nitrogen) 17 mg/dL (8.4-25.7); Bilirubin, Total 0.2 mg/dL (0.2-1.2); Calc. Creatinine Clearance 90 mL/min (70-130); Calcium 8.9 mg/dL (7.8-10.44); Carbon Dioxide 19 mmol/L (23-31); Chloride 104 mmol/L (98-107); Estimated GFR 99; Globulin 3.4 g/dL (2.4-3.5); Glucose 122 mg/dL (83-110); Potassium 4.4 mmol/L (3.5-5.1); Sodium 133 mmol/L (136-145)
[2024-02-22 16:41] VITALS: BP 126/89; TEMP 97.8
== END 2024-02-22 18:45 | disposition home health service (06) | DRG 698 ==
LOC: ERS 15:39 → ERHOLD 22:28 → 2NO 02-18 22:01 → OBSVTOIN 02-19 09:24 → 2NO 02-20 10:14
PROVIDERS: ADMIT Student in an Organized Health Care Education/Training Program; ATTEND Internal Medicine
DX: T83.511A Infection and inflammatory reaction due to indwelling urethral catheter, initial encounter (principal); G82.50 Quadriplegia, unspecified; L89.154 Pressure ulcer of sacral region, stage 4; N39.0 Urinary tract infection, site not specified; I49.3 Ventricular premature depolarization; Z66 Do not resuscitate; Z79.899 Other long term (current) drug therapy; Z88.0 Allergy status to penicillin; Z88.8 Allergy status to other drugs, medicaments and biological substances; E11.9 Type 2 diabetes mellitus without complications; I48.0 Paroxysmal atrial fibrillation; I10 Essential (primary) hypertension; Z79.4 Long term (current) use of insulin; Z88.7 Allergy status to serum and vaccine; B35.1 Tinea unguium; L03.031 Cellulitis of right toe
CPT/HCPCS: 36415; 36416; 80048; 80053; 81001; 83735; 85025; 87077; 87086; 87186; 93005; 93010; 96374; 96375; 96376; 97139; G0378; J0696; J1815; J3475

== ENCOUNTER 2024-03-09 18:19 | Inpatient (IN) | payer MEDICARE, BC ==
[2024-03-09] MEDS ORDERED: Ondansetron PF 4 MG/2 ML Vial ONE (18:23)
[2024-03-09] MEDS ORDERED: fentaNYL 50 mcg/mL 1 mL Vial ONE (18:24)
[2024-03-09] MEDS ORDERED: Glucagon 1 MG/ML KIT ONE ×3 (18:24→19:04)
[2024-03-09] MEDS ORDERED: Calcium Chloride 1 GM/10 ML Abboject SYRINGE ONE (18:30)
[2024-03-09 19:16] LABS: #Basophils 0.11 10x3/uL (0.0-0.2); %Eosinophils 8.2 % (0.0-10.0); %Lymphocytes 34.9 % (21.0-51.0); %Monocytes 9.5 % (0.0-10.0); %Neutrophils 45.8 % (42.0-75.0); Hematocrit 35.9 % (42.0-52.0); Hemoglobin 11.5 g/dL (14.0-18.0); Mean Corpuscular Hemoglobin 29.1 pg (27.0-31.0); Mean Corpuscular Volume 90.9 fL (78.0-98.0); Mean Platelet Volume 9.9 fL (7.4-10.4); Platelet Count 371 10x3/uL (130-400); RBC Distribution Width 14.6 % (11.5-14.5); Red Blood Cell (RBC) Count 3.95 mill/uL (4.70-6.10)
[2024-03-09 19:31] LABS: Bilirubin Negative (Negative); Blood, Urine Trace (Negative); Glucose, Urine (Dipstick) Negative (Negative); Ketone, Urine Negative (Negative); Leukocyte Large (Negative); Nitrite Positive (Negative); Protein, Urine (Dipstick) 30 mg/dL (Neg-Trace); Urobilinogen 0.2 mg/dL (Less than 2); pH, Urine 8.5 (5.0-9.0)
[2024-03-09 19:43] LABS: ALT (SGPT) 6 U/L (8-55); AST (SGOT) 11 U/L (5-34); Albumin 2.9 g/dL (3.4-4.8); Alkaline Phosphatase 71 U/L (40-110); Anion Gap 11 mmol/L (10-20); BUN (Urea Nitrogen) 17 mg/dL (8.4-25.7); Bilirubin, Total 0.3 mg/dL (0.2-1.2); Calc. Creatinine Clearance 0 mL/min (70-130); Calcium 10.6 mg/dL (7.8-10.44); Carbon Dioxide 22 mmol/L (23-31); Chloride 105 mmol/L (98-107); Estimated GFR 98; Globulin 3.8 g/dL (2.4-3.5); Glucose 187 mg/dL (83-110); Lipase 33 U/L (8-78); Magnesium 1.6 mg/dL (1.6-2.6); Potassium 3.6 mmol/L (3.5-5.1); Protein, Total 6.7 g/dL (5.8-8.1); Sodium 134 mmol/L (136-145)
[2024-03-09 19:43] LABS: Clarity Hazy (Clear)
[2024-03-09 20:02] LABS: Squamous Epithelial 0-3 HPF (0-3)
[2024-03-09 20:02] LABS: Troponin I Less than 0.010 ng/mL (< 0.028)
[2024-03-09 20:03] LABS: CAUTI Indications for Culture Alt mental st,lethar
[2024-03-09] MEDS ORDERED: cefTRIAXone (ROCEPHIN) 1 GM VIAL ONE ×2 (20:22→20:23)
[2024-03-09] MEDS ORDERED: Sodium Chloride 0.9% 100 ML ONE (20:23)
[2024-03-09] MEDS ORDERED: Lidocaine 1% PF 5 ML VIAL ONE (20:55)
[2024-03-09] MEDS ORDERED: Ondansetron ODT 4 MG TAB SL PRN (21:00)
[2024-03-09] MEDS ORDERED: NOREPINEPHRINE 8 MG/250 ML-D5W 250 ML IVPB SCH (21:00)
[2024-03-09] MEDS ORDERED: Heparin 25,000 units/D5W 500 ML IVPB SCH (21:45)
[2024-03-09] MEDS ORDERED: DOPamine 400 MG/D5W 250 ML 250 ML IVPB SCH (21:45)
[2024-03-09] MEDS ORDERED: Electrolyte Replacement Protocol FS SCH (22:05)
[2024-03-09] MEDS ORDERED: Calcium Carbonate 500 MG ChewTAB PO PRN (22:12)
[2024-03-09] MEDS ORDERED: Ondansetron ODT 4 MG TAB PO PRN (22:12)
[2024-03-09] MEDS ORDERED: Acetaminophen 650 MG Suppository PR PRN (22:12)
[2024-03-09] MEDS ORDERED: Enoxaparin 60 MG (0.6 mL) SYRINGE SC SCH (22:15)
[2024-03-09] MEDS: DOPamine 400 MG/D5W 250 ML 250 ML IVPB SCH (22:48)
[2024-03-09] MEDS: Lactated Ringer's 1,000 ML IV SCH (22:48)
[2024-03-09 22:59] VITALS: BMI 20.7
[2024-03-09] MEDS: Magnesium 2 GM/50 ML(in water) 2 GM in Premix 1 BAG IVPB SCH (23:15)
[2024-03-09] MEDS: Enoxaparin 80 MG (0.8 mL) SYRINGE SC SCH (23:15)
[2024-03-09] MEDS: traMADol HCl 50 MG TAB PO PRN (23:21)
[2024-03-09] MEDS: Acetaminophen 325 MG TAB PO SCH (23:22)
[2024-03-09] MEDS: Ondansetron PF 4 MG/2 ML Vial IVP PRN (23:40)
[2024-03-10 03:52] LABS: #Basophils 0.08 10x3/uL (0.0-0.2); %Basophils 0.5 % (0.0-1.0); %Eosinophils 0.7 % (0.0-10.0); %Neutrophils 78.1 % (42.0-75.0); Hematocrit 35.9 % (42.0-52.0); Hemoglobin 11.7 g/dL (14.0-18.0); Mean Corpuscular HGB CONC 32.6 g/dL (32.0-36.0); Mean Corpuscular Hemoglobin 29.6 pg (27.0-31.0); Mean Corpuscular Volume 90.9 fL (78.0-98.0); Mean Platelet Volume 9.6 fL (7.4-10.4); Platelet Count 370 10x3/uL (130-400); RBC Distribution Width 14.4 % (11.5-14.5); Red Blood Cell (RBC) Count 3.95 mill/uL (4.70-6.10)
[2024-03-10 04:07] LABS: Anion Gap 11 mmol/L (10-20); BUN (Urea Nitrogen) 18 mg/dL (8.4-25.7); Calc. Creatinine Clearance 93 mL/min (70-130); Calcium 9.7 mg/dL (7.8-10.44); Carbon Dioxide 24 mmol/L (23-31); Chloride 100 mmol/L (98-107); Estimated GFR 98; Glucose 267 mg/dL (83-110); Magnesium 2.1 mg/dL (1.6-2.6); Sodium 131 mmol/L (136-145)
[2024-03-10] MEDS ORDERED: Glucagon 1 MG/ML KIT IM PRN (04:20)
[2024-03-10] MEDS ORDERED: Dextrose 5% in Water 1,000 ML IV PRN (04:20)
[2024-03-10] MEDS ORDERED: Dextrose 50% Abboject 50 ML SYRINGE SLOW IVP PRN (04:20)
[2024-03-10 04:56] LABS: Troponin I 0.225 ng/mL (< 0.028)
[2024-03-10] MEDS: Insulin Lispro 100 UNIT/ML 10 ML VIAL SC PRN (06:13)
[2024-03-10 07:20] LABS: Critical Call Chem Troponin I RESULT DECREASING; Troponin I 0.216 ng/mL (< 0.028)
[2024-03-10] MEDS: Enoxaparin 80 MG (0.8 mL) SYRINGE SC SCH ×2 (07:53→20:06)
[2024-03-10] MEDS: Tamsulosin HCl 0.4 MG CAP PO SCH (07:55)
[2024-03-10] MEDS: Famotidine/PF 20 mg/2ml Vial SLOW IVP SCH (07:55)
[2024-03-10] MEDS: Gabapentin 300 MG CAP PO SCH (07:55)
[2024-03-10] MEDS: Furosemide 20 MG TAB PO SCH (07:55)
[2024-03-10] MEDS: Brimonidine Tartrate 0.2% Ophth Soln 5 ml Bottle EA EYE SCH (07:55)
[2024-03-10] MEDS ORDERED: Enoxaparin 60 MG (0.6 mL) SYRINGE SC SCH (09:00)
[2024-03-10] MEDS ORDERED: DICLOFENAC 1% TOPICAL GEL TOP PRN (11:00)
[2024-03-10] MEDS: Famotidine 20 MG TAB PO SCH (12:41)
[2024-03-10] MEDS ORDERED: BIOFREEZE TOP PRN (16:31)
[2024-03-10] MEDS: Ondansetron PF 4 MG/2 ML Vial IVP PRN (17:50)
[2024-03-10] MEDS: Atorvastatin Calcium 10 MG TAB PO SCH (20:06)
[2024-03-11 04:23] LABS: #Basophils 0.13 10x3/uL (0.0-0.2); %Basophils 1.3 % (0.0-1.0); %Eosinophils 8.8 % (0.0-10.0); %Lymphocytes 24.2 % (21.0-51.0); %Neutrophils 52.1 % (42.0-75.0); Hematocrit 35.5 % (42.0-52.0); Hemoglobin 11.9 g/dL (14.0-18.0); Mean Corpuscular HGB CONC 33.5 g/dL (32.0-36.0); Mean Corpuscular Hemoglobin 29.3 pg (27.0-31.0); Mean Corpuscular Volume 87.4 fL (78.0-98.0); Mean Platelet Volume 9.3 fL (7.4-10.4); Platelet Count 357 10x3/uL (130-400); RBC Distribution Width 14.2 % (11.5-14.5); Red Blood Cell (RBC) Count 4.06 mill/uL (4.70-6.10)
[2024-03-11 04:38] LABS: Anion Gap 10 mmol/L (10-20); BUN (Urea Nitrogen) 11 mg/dL (8.4-25.7); Calc. Creatinine Clearance 93 mL/min (70-130); Calcium 9.1 mg/dL (7.8-10.44); Carbon Dioxide 27 mmol/L (23-31); Chloride 97 mmol/L (98-107); Estimated GFR 96; Glucose 197 mg/dL (83-110); Potassium 3.9 mmol/L (3.5-5.1); Sodium 130 mmol/L (136-145)
[2024-03-11] MEDS: Aspirin 81 mg Enteric Coated Tablet PO SCH (17:25)
[2024-03-12 04:43] LABS: #Basophils 0.11 10x3/uL (0.0-0.2); %Basophils 1.2 % (0.0-1.0); %Eosinophils 10.6 % (0.0-10.0); %Lymphocytes 29.5 % (21.0-51.0); %Monocytes 13.1 % (0.0-10.0); %Neutrophils 44.9 % (42.0-75.0); Hemoglobin 11.3 g/dL (14.0-18.0); Mean Corpuscular HGB CONC 32.3 g/dL (32.0-36.0); Mean Corpuscular Hemoglobin 28.9 pg (27.0-31.0); Mean Corpuscular Volume 89.5 fL (78.0-98.0); Mean Platelet Volume 9.7 fL (7.4-10.4); Platelet Count 351 10x3/uL (130-400); RBC Distribution Width 14.2 % (11.5-14.5); Red Blood Cell (RBC) Count 3.91 mill/uL (4.70-6.10)
[2024-03-12 05:11] LABS: Anion Gap 12 mmol/L (10-20); BUN (Urea Nitrogen) 12 mg/dL (8.4-25.7); Calc. Creatinine Clearance 96 mL/min (70-130); Calcium 8.8 mg/dL (7.8-10.44); Carbon Dioxide 26 mmol/L (23-31); Chloride 100 mmol/L (98-107); Estimated GFR 96; Glucose 238 mg/dL (83-110); Sodium 134 mmol/L (136-145)
[2024-03-12] MEDS ORDERED: Fluticasone Propionate Nasal Spray 16 gm Bottle NASAL SCH (09:00)
[2024-03-12] MEDS: Sodium Chloride 0.9% 250 ML 250 ML IVPB SCH (09:00)
[2024-03-12] MEDS: Aspirin 81 mg Enteric Coated Tablet PO SCH (09:14)
[2024-03-12] MEDS: Cefepime 2 GM in Sodium Chloride 0.9% 100 ML IVPB SCH (18:22)
[2024-03-12] MEDS: Insulin Lispro 100 UNIT/ML 10 ML VIAL SC PRN (22:45)
[2024-03-13 04:46] LABS: #Basophils 0.11 10x3/uL (0.0-0.2); %Basophils 1.4 % (0.0-1.0); %Eosinophils 8.3 % (0.0-10.0); %Lymphocytes 28.6 % (21.0-51.0); %Monocytes 13.4 % (0.0-10.0); %Neutrophils 47.8 % (42.0-75.0); Hematocrit 32.7 % (42.0-52.0); Hemoglobin 10.6 g/dL (14.0-18.0); Mean Corpuscular HGB CONC 32.4 g/dL (32.0-36.0); Mean Corpuscular Hemoglobin 29.1 pg (27.0-31.0); Mean Corpuscular Volume 89.8 fL (78.0-98.0); Mean Platelet Volume 9.9 fL (7.4-10.4); Platelet Count 312 10x3/uL (130-400); RBC Distribution Width 14.4 % (11.5-14.5); Red Blood Cell (RBC) Count 3.64 mill/uL (4.70-6.10)
[2024-03-13 04:59] LABS: Anion Gap 11 mmol/L (10-20); BUN (Urea Nitrogen) 14 mg/dL (8.4-25.7); Calc. Creatinine Clearance 103 mL/min (70-130); Calcium 8.9 mg/dL (7.8-10.44); Carbon Dioxide 28 mmol/L (23-31); Chloride 100 mmol/L (98-107); Estimated GFR 98; Glucose 222 mg/dL (83-110); Potassium 3.9 mmol/L (3.5-5.1); Sodium 135 mmol/L (136-145)
[2024-03-13] MEDS: NOREPINEPHRINE 8 MG/250 ML-D5W 250 ML IVPB SCH (09:52)
[2024-03-13] MEDS: Hydrocortisone Sod Succ/PF 100 mg/2 ml Vial IVP SCH ×2 (16:37→23:11)
[2024-03-13] MEDS ORDERED: Communication Order-Pharmacy FS SCH (19:30)
[2024-03-13] MEDS: Timolol 0.25% Ophth Soln 5 ml Bottle EA EYE SCH (20:01)
[2024-03-14 04:31] LABS: #Basophils Less than 0.03 10x3/uL (0.0-0.2); #Eosinophils Less than 0.03 10x3/uL (0.0-0.7); %Basophils 0.1 % (0.0-1.0); %Lymphocytes 24.4 % (21.0-51.0); %Monocytes 7.4 % (0.0-10.0); %Neutrophils 67.3 % (42.0-75.0); Hematocrit 31.9 % (42.0-52.0); Hemoglobin 10.4 g/dL (14.0-18.0); Mean Corpuscular HGB CONC 32.6 g/dL (32.0-36.0); Mean Corpuscular Hemoglobin 28.9 pg (27.0-31.0); Mean Corpuscular Volume 88.6 fL (78.0-98.0); Mean Platelet Volume 9.7 fL (7.4-10.4); Platelet Count 337 10x3/uL (130-400); RBC Distribution Width 14.6 % (11.5-14.5)
[2024-03-14 04:46] LABS: Anion Gap 11 mmol/L (10-20); BUN (Urea Nitrogen) 15 mg/dL (8.4-25.7); Calc. Creatinine Clearance 84 mL/min (70-130); Calcium 8.8 mg/dL (7.8-10.44); Carbon Dioxide 26 mmol/L (23-31); Chloride 101 mmol/L (98-107); Estimated GFR 92; Glucose 291 mg/dL (83-110); Potassium 4.1 mmol/L (3.5-5.1); Sodium 134 mmol/L (136-145)
[2024-03-14] MEDS: Sodium Chloride 0.9% 1,000 ML IV SCH (07:23)
[2024-03-14] MEDS ORDERED: Mirabegron ER 25 MG ER.TAB PO SCH (09:00)
[2024-03-14] MEDS ORDERED: Heparin 10,000 UNITS/ 10 ML VIAL ONE (09:07)
[2024-03-14] MEDS ORDERED: Nitroglycerin 50 MG/250 ML BOT 0 ML ONE (09:09)
[2024-03-14] MEDS ORDERED: fentaNYL 50 mcg/mL 1 mL Vial ONE (09:09)
[2024-03-14] MEDS ORDERED: Midazolam HCl 2 mg/2 ml Vial ONE (09:09)
[2024-03-14] MEDS ORDERED: Atropine Sulfate 1 mg/10 ml Syringe ONE (10:18)
[2024-03-14] MEDS ORDERED: Sodium Chloride 0.9% 200 ML IV PRN (10:50)
[2024-03-14] MEDS ORDERED: Nitroglycerin 0.4 MG TAB (25 Tab Bottle) SL PRN (10:50)
[2024-03-14] MEDS: Insulin Lispro 100 UNIT/ML 10 ML VIAL SC PRN (11:12)
[2024-03-14] MEDS: Latanoprost 0.005% Ophth Soln 2.5 ml Bottle EA EYE SCH (11:15)
[2024-03-14] MEDS: Polyethylene Glycol 3350 17 GM Packet PO SCH (11:17)
[2024-03-14] MEDS: Mirabegron ER 25 MG ER.TAB PO SCH (11:17)
[2024-03-14] MEDS ORDERED: Iopamidol 370 76% 100 ML VIAL ONE (15:38)
[2024-03-15 05:00] LABS: #Basophils 0.03 10x3/uL (0.0-0.2); %Basophils 0.4 % (0.0-1.0); %Eosinophils 0.8 % (0.0-10.0); %Lymphocytes 32.4 % (21.0-51.0); %Monocytes 12.4 % (0.0-10.0); %Neutrophils 52.8 % (42.0-75.0); Hematocrit 28.8 % (42.0-52.0); Hemoglobin 9.3 g/dL (14.0-18.0); Mean Corpuscular HGB CONC 32.3 g/dL (32.0-36.0); Mean Corpuscular Hemoglobin 29.2 pg (27.0-31.0); Mean Corpuscular Volume 90.3 fL (78.0-98.0); Mean Platelet Volume 10.1 fL (7.4-10.4); Platelet Count 267 10x3/uL (130-400); RBC Distribution Width 14.7 % (11.5-14.5); Red Blood Cell (RBC) Count 3.19 mill/uL (4.70-6.10)
[2024-03-15 05:09] LABS: Anion Gap 10 mmol/L (10-20); BUN (Urea Nitrogen) 19 mg/dL (8.4-25.7); Calc. Creatinine Clearance 134 mL/min (70-130); Calcium 8.2 mg/dL (7.8-10.44); Carbon Dioxide 24 mmol/L (23-31); Chloride 105 mmol/L (98-107); Estimated GFR 107; Glucose 304 mg/dL (83-110); Potassium 3.5 mmol/L (3.5-5.1); Sodium 135 mmol/L (136-145)
[2024-03-15] MEDS: Potassium Chloride 20 MEQ TAB PO SCH (08:40)
[2024-03-15] MEDS: Enoxaparin 40 MG (0.4 mL) SYRINGE SC SCH (08:43)
[2024-03-15] MEDS: predniSONE 5 MG TAB PO SCH (10:17)
[2024-03-15] MEDS ORDERED: Bisacodyl 10 MG SUPP PR PRN (16:54)
[2024-03-16 05:10] LABS: #Basophils 0.08 10x3/uL (0.0-0.2); %Basophils 0.8 % (0.0-1.0); %Eosinophils 2.1 % (0.0-10.0); %Lymphocytes 30.1 % (21.0-51.0); %Monocytes 9.7 % (0.0-10.0); %Neutrophils 55.6 % (42.0-75.0); Hematocrit 31.9 % (42.0-52.0); Hemoglobin 10.6 g/dL (14.0-18.0); Mean Corpuscular HGB CONC 33.2 g/dL (32.0-36.0); Mean Corpuscular Hemoglobin 29.6 pg (27.0-31.0); Mean Corpuscular Volume 89.1 fL (78.0-98.0); Mean Platelet Volume 10.7 fL (7.4-10.4); Platelet Count 280 10x3/uL (130-400); RBC Distribution Width 14.8 % (11.5-14.5); Red Blood Cell (RBC) Count 3.58 mill/uL (4.70-6.10)
[2024-03-16 05:11] LABS: Anion Gap 10 mmol/L (10-20); BUN (Urea Nitrogen) 16 mg/dL (8.4-25.7); Calc. Creatinine Clearance 127 mL/min (70-130); Calcium 8.4 mg/dL (7.8-10.44); Carbon Dioxide 22 mmol/L (23-31); Chloride 105 mmol/L (98-107); Estimated GFR 105; Glucose 192 mg/dL (83-110); Potassium 4.3 mmol/L (3.5-5.1); Sodium 133 mmol/L (136-145)
[2024-03-16] MEDS: predniSONE 5 MG TAB PO SCH (08:59)
[2024-03-16 11:23] VITALS: BMI 22.2
[2024-03-16 20:31] VITALS: BP 148/62; TEMP 97.3
[2024-03-17] MEDS ORDERED: Apixaban 5 MG TAB PO SCH (09:00)
== END 2024-03-16 20:28 | disposition home or self-care (01) | DRG 286 ==
LOC: ERS 18:19 → CCU 20:45 → 2NO 03-15 18:12
PROVIDERS: ADMIT Student in an Organized Health Care Education/Training Program; ATTEND Internal Medicine
PROC: 3E033XZ Introduction of Vasopressor into Peripheral Vein, Percutaneous Approach (ICD-10-PCS; 2024-03-09)
PROC: B2111ZZ Fluoroscopy of Multiple Coronary Arteries using Low Osmolar Contrast (ICD-10-PCS; principal; 2024-03-14)
PROC: 4A023N7 Measurement of Cardiac Sampling and Pressure, Left Heart, Percutaneous Approach (ICD-10-PCS; 2024-03-14)
PROC: B2151ZZ Fluoroscopy of Left Heart using Low Osmolar Contrast (ICD-10-PCS; 2024-03-14)
DX: R00.1 Bradycardia, unspecified (principal); G82.50 Quadriplegia, unspecified; I50.33 Acute on chronic diastolic (congestive) heart failure; R57.0 Cardiogenic shock; E27.49 Other adrenocortical insufficiency; E87.1 Hypo-osmolality and hyponatremia; N39.0 Urinary tract infection, site not specified; I95.9 Hypotension, unspecified; I48.0 Paroxysmal atrial fibrillation; Z66 Do not resuscitate; E11.9 Type 2 diabetes mellitus without complications; N40.0 Benign prostatic hyperplasia without lower urinary tract symptoms; H40.9 Unspecified glaucoma; I11.0 Hypertensive heart disease with heart failure; I25.10 Atherosclerotic heart disease of native coronary artery without angina pectoris; N39.41 Urge incontinence; I49.5 Sick sinus syndrome; G56.91 Unspecified mononeuropathy of right upper limb; Z96.612 Presence of left artificial shoulder joint; L89.159 Pressure ulcer of sacral region, unspecified stage; T50.905A Adverse effect of unspecified drugs, medicaments and biological substances, initial encounter; Z96.642 Presence of left artificial hip joint; Z79.01 Long term (current) use of anticoagulants; Z86.718 Personal history of other venous thrombosis and embolism; Z91.81 History of falling; Z88.0 Allergy status to penicillin; Z88.7 Allergy status to serum and vaccine; Z96.651 Presence of right artificial knee joint; Z88.4 Allergy status to anesthetic agent; Z88.8 Allergy status to other drugs, medicaments and biological substances; Z79.899 Other long term (current) drug therapy; Z87.891 Personal history of nicotine dependence; Z90.49 Acquired absence of other specified parts of digestive tract; Z86.14 Personal history of Methicillin resistant Staphylococcus aureus infection
CPT/HCPCS: 36415; 36416; 36556; 71045; 80048; 80053; 81001; 82533; 83690; 83735; 83880; 84443; 84484; 85025; 87040; 87077; 87086; 87186; 93005; 93010; 93306; 93458; 93798; 96365; 96366; 96368; 96374; 96375; 97139; 99152; C1769; C1887; C1894; J0461; J0692; J0696; J1265; J1611; J1644; J1650; J1720; J1815; J2250; J2405; J3010; J3475; J3490; J7030; J7050; J7120; J7512; Q9967